=== PATIENT | male | born 1975 | race Caucasian/White ===

== ENCOUNTER 2024-06-27 09:58 | Outpatient (AMB) | payer MEDICARE, MEDICAID, SELFPAY ==
--- NOTE | 2024-06-27 10:07 | A.OFFVIS_ITS ---
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 The patient describes his pain as sharp in nature. The patient states that he underwent right knee ?meniscus tear surgery? approximately 10 years ago. He got fairly good relief from that surgery initially. His pain has returned. He describes his pain as sharp and severe in nature. Most of the pain is along the medial aspect of his knee. He has had cortisone injections in the past which gave him temporary relief. He has also tried Tylenol and Motrin which gave him minimal relief. The patient has difficulty walking even short distances because of his pain. At this point his right knee pain is interfering with his activities of daily living and his ability to sleep well through the night. Allergies No Known Allergies Allergy (Verified 06/27/24 10:15) Medication List - Last Reconciled 06/27/24 by Ottoniel Chavez MD budesonide-formoterol 80-4.5 mcg/actuation inhalation cholecalciferol (vitamin D3) 1,250 mcg PO QWEEK codeine-guaifenesin 10-100 mg/5 mL 10 mL PO TID PRN diclofenac sodium 1% topical BID metoprolol succinate ER 50 mg PO DAILY paroxetine HCl 40 mg PO DAILY prednisone 20 mg PO BID sildenafil 100 mg PO DAILY PRN valsartan 80 mg PO DAILY Physical Exam Vital Signs: BMI result Body Mass Index 35.7 Const Other: Well-nourished well-developed very friendly male awake alert and oriented x3 in no acute distress Extrem Other: Bilateral lower extremity examination shows good capillary refill, no skin lesions noted, normal sensation light touch Right knee examination shows a minimal effusion, palpable crepitus with range of motion, pain with range of motion, range of motion from -3 degrees to 115 degrees, no instability Office Procedures Joint Injection/Aspiration Joint Injection/Aspiration Primary Site: right knee Prep: site was prepped using aseptic technique Injected: 40 mg of, DepoMedrol and 1% plain lidocaine Procedure: The patient tolerated the procedure well Coding 43830 - Large joint Procedure code (CPT) selection complete Results Reviewed Results Reviewed: X-rays of the patient's right knee show moderate to severe joint space narrowing most significant in the medial compartment and patellofemoral joint, subchondral sclerosis, osteophyte formation, no acute bony abnormalities Assessment & Plan Assessment & Plan (1) Arthritis of right knee: Code(s): M17.11 - Unilateral primary osteoarthritis, right knee Category: Medical Plan Mr. Moscoso presents with progressively worsening right knee pain due to degenerative joint disease. I had a lengthy discussion with the patient regarding the treatment options. The risks and benefits of a right knee corti sone injection were discussed at length with the patient. The patient wished to proceed. He tolerated the injection well. He will continue with his activity modifications. He will contact me prior to his follow-up appointment in 3 months should any questions or concerns arise. If he fails continued non operative treatments we will further discuss the risks and benefits of right total knee replacement surgery. Feel free to call me at any time should questions regarding his orthopedic management arise. Thank you very much for asking me to see this very friendly gentleman. I spent 21 minutes in reviewing the patient's records and imaging studies, seeing the patient and documenting in the medical record. Orders: Orders XR knee RT 3V Today M25.561 - Pain in right knee AMB Joint Injection/Aspiration Today M17.11 - Unilateral primary osteoarthritis, right knee Coding Level of Care Code New Pt Level 3 (72609) Complex EM visit Add On G2211 Diagnoses Arthritis of right knee M17.11 CPT Codes Coding - 08557 Large joint: 79743 - Large joint ([id number])
[2024-06-27 10:24] VITALS: BMI 35.7
== END 2024-06-27 10:26 | disposition home or self-care (01) ==
PROVIDERS: PCP Family Medicine; Visit Provider Orthopaedic Surgery
DX: M17.11 Unilateral primary osteoarthritis, right knee (principal)
CPT/HCPCS: 20610; 99203

== ENCOUNTER 2024-06-27 12:59 | Outpatient (REF) | payer MEDICAID, SELFPAY | END 2024-06-27 13:00 | disposition home or self-care (01) | LOC: HO.HOSX 12:59 | PROVIDERS: Visit Provider Orthopaedic Surgery | DX: M25.561 Pain in right knee (principal); M17.11 Unilateral primary osteoarthritis, right knee | CPT/HCPCS: 20610; 73562; 99202; J1010; J2003 ==

== ENCOUNTER 2025-04-24 11:27 | Outpatient (AMB) | payer MEDICARE, MEDICAID, SELFPAY ==
--- NOTE | 2025-04-24 11:31 | A.OFFVIS_ITS ---
Vital Signs 04/24/25 11:36 Height 5 ft 8 in Weight 242 lb BMI 36.8 Intake Visit Reasons: Right knee pain Intake Note: Benson is a 50 year old male who presents with complaints of progressively worsening right knee pain. He describes his pain as sharp and severe in nature, 06/21. His pain has gotten worse over the last few years in spite of continued non operative treatments. He has had multiple injections. The most recent injection gave him minimal relief. He has also tried Tylenol and anti- inflammatory medicines which gave him only mild relief. He has done physical therapy exercises which aggravated his pain. At this point his right knee pain is interfering with his activities of daily living and his ability to sleep well through the night. He has difficulty walking even short distances because of his pain. Allergies No Known Allergies Allergy (Verified 04/24/25 11:32) Medication List - Last Reconciled 04/24/25 by Ottoniel Chavez MD budesonide-formoterol 80-4.5 mcg/actuation inhalation cholecalciferol (vitamin D3) 1,250 mcg PO QWEEK diclofenac sodium 1% topical BID metoprolol succinate ER 50 mg PO DAILY paroxetine HCl 10 mg PO DAILY paroxetine HCl 40 mg PO DAILY prednisone 20 mg PO BID quetiapine 50 mg PO BEDTIME sildenafil 100 mg PO DAILY PRN valsartan 80 mg PO DAILY Physical Exam Vital Signs: BMI result Body Mass Index 36.8 Const Other: Well-nourished well-developed very friendly male awake alert and oriented x3 in no acute distress Extrem Other: Bilateral lower extremity examination shows good capillary refill, no skin lesions noted, normal sensation light touch Right knee examination shows a minimal effusion, palpable crepitus with range of motion, pain with range of motion, range of motion from -3 degrees to 115 degrees, no instability Results Reviewed Results Reviewed: X-rays of the patient's right knee show end-stage degenerative joint disease with grade 4 [id number] arthritis, subchondral sclerosis, osteophyte formation, no acute bony abnormalities Assessment & Plan Assessment & Plan (1) Right knee pain: Code(s): M25.561 - Pain in right knee Category: Medical Plan Mr. Flores presents with right knee pain due to end-stage degenerative joint disease. I had a lengthy discussion with the patient regarding the treatment options. At this point he has failed continued non operative treatments. The risks and benefits of right total knee replacement surgery were discussed at length with the patient. The patient wishes to proceed with surgery. He will be scheduled for next available date. He will follow-up as instructed. Feel free to call me at any time should questions regarding his orthopedic management arise. I spent 21 minutes in reviewing the patient's records and imaging studies, seeing the patient and documenting in the medical record. Coding Level of Care Code Est Pt Level 3 (06894) Complex EM visit Add On G2211 Diagnoses Right knee pain M25.561
[2025-04-24 11:36] VITALS: BMI 36.8
--- OUTSIDE RECORDS SUMMARY | 2025-04-24 12:26 | XMS_ITS | Clinical Summary ---
Author Organization [facility] Address [address] [place] [address] Phone Care Team Providers Care Manager Privacy Name Role Phone Ba Roberts MD Primary Care Provider [phone] Allergies Active Allergy Reactions Criticality Noted Date Comments Penicillins 09/30/2024 Medications amLODIPine (NORVASC) 10 mg tablet Take 1 tablet (10 mg total) by mouth 1 (one) time each day. Active cholecalciferol (VITAMIN D-3) 1,250 mcg (50,000 unit) capsule Take 1 capsule (50,000 Units total) by mouth 1 (one) time per week. Active omeprazole (PriLOSEC) [address] capsule Take 1 capsule (40 mg total) by mouth 1 (one) time each day before breakfast. Active valsartan (DIOVAN) 80 mg tablet Take 1 tablet (80 mg total) by mouth 1 (one) time each day. Active calcium carbonate-vitam in D 500 mg-5 mcg (200 unit) per tablet Take 1 tablet by mouth 1 (one) time each day. Active Active Problems Problem Noted Date Diagnosed Date Renal colic 09/30/2024 Surgical History Surgery Date Site/Laterality Comments KNEE ARTHROSCOPY W/ MENISCAL REPAIR Right PROCEDURE: FL ARTHROSCOPY KNEE W/MENISCUS RPR MEDIAL/LATERAL SLEEVE GASTROPLASTY Medical History Medical History Date Comments GERD (gastroesophageal reflux disease) DX:GERD (gastroesophageal reflux disease) Arthritis DX:Arthritis HTN (hypertension) DX:HTN (hyper tension) Knee swelling DX:Knee swelling Ankle swelling DX:Ankle swellin g Gastric bypass status for obesity Family History Medical History Relation Name Comments Diabetes Father Hypertension Father Arthritis Mother Hypertension Mother Diabetes Other Hypertension Other Relation Name Status Comments Father Mother Alive Other Social History Tobacco Use Types Packs/Day Years Used Date Smoking Tobacco: Former Smokeless Tobacco: Never Alcohol Use Standard Drinks/Week Comments No 0 (1 standard drink = 0.6 oz pur e alcohol) Interpersonal Safety Answer Date Record ed Physical Abuse 09/30/2024 Verbal Abuse 09/30/2024 Sex and Gender Information Value Date Recorded Sex Assigned at Male 09/30/2024 12:08 PM EST Legal Sex Male 8:51 AM EST Gender Identity Male 09/30/2024 12:08 PM EST Sexual Orientation Straight 09/30/2024 12 :08 PM EST Obstetrics History Last Filed Vital Signs Vital Sign Reading Time Taken Comments Blood Pressure 120/76 10/01/2024 7:32 AM EST Pulse 68 10/01/2024 7:32 AM EST Temperature 36.6 C (97.8 F) 10/01/2024 7:32 AM EST Respiratory Rate 15 10/01/2024 7:32 AM EST Oxygen Saturation 99% 10/01/2024 7:32 AM EST Inhaled Oxygen Concentration - - Weight 112 kg (246 lb 14.4 oz) 09/30/2024 5:30 P M EST Height 172.7 cm (5' 7.99 ) 09/30/2024 5:30 PM ES T Body Mass Index 37.55 09/30/2024 5:30 PM EST Plan of Treatment Health Maintenance Due Date Last Done Comments HIV Screening 08/21/2022 Hepatitis C Screening 08/21/2022 Medicare Annual Wellness Visit 08/21/2022 Social Influencers of Health Screening 08/21/2022 Pneumococcal Vaccine: 50+ Years (1 of 1 - PCV) 2023 COVID-19 Vaccine (4 - season) 2024 09/07/2021, 01/26/2021, 12/23/2020 Zoster Vaccines (2 of 2) 07/24/2024 05/29/2024 DTaP,Tdap,and Td Vaccines (2 - Td or Tdap) 09/12/2024 09/12/2014 Depression Screening 09/12/2024 Influenza Vaccine (#1) 2025 , 05/20/2022, 06/18/2021, Additional history exists Colorectal Cancer Screening: FIT-DNA (Cologuard) 06/17/2025 06/17/2022 Hypertension/CHF/CAD Annual BMP Blood Test 10/01/2025 10/01/2024, 09/30/2024, 05/29/2024 Cholesterol Screening (Lipid Panel) 05/29/2029 05/29/2024, 05/29/2024, 06/24/2023, Additional history exists Hepatitis B Vaccines Completed 08/04/2020, 06/30/20 HIB Vaccines Aged Out No longer eligi ble based on patient's age to complete this topic HPV Vaccines Aged Out No longer eligi ble based on patient's age to complete this topic Hepatitis A Vaccines Aged Out No long er eligible based on patient's age to complete this topic IPV Vaccines Aged Out No longer eligi ble based on patient's age to complete this topic MMR Vaccines Aged Out No longer eligi ble based on patient's age to complete this topic Meningococcal ACWY Vaccine Aged Out N o longer eligible based on patient's age to complete this topic Meningococcal B Vaccine Aged Out No l onger eligible based on patient's age to complete this topic RSV Immunization Patients Under 20 months Aged Out No longer eligible based on patient's age to complete this topic Varicella Vaccines Aged Out No longer eligible based on patient's age to complete this topic Procedures Procedure Name Priority Date/Time Associated Diagnosis Comments BASIC METABOLIC PANEL Routine 10/01/2024 5:57 AM EST from Last 3 Months or Most Recently Relevant to Health Maintenance Results * (ABNORMAL) Basic metabolic panel (10/01/2024 5:57 AM EST) Sodium 142 133 - 145 mmol/L LAB CHEMISTRY METHOD 10/01/2024 7:06 AM EST [facility] Potassium 4.0 3.5 - 5.5 mmol/L LAB CHEMISTRY METHOD 10/01/2024 7:06 AM EST [facility] Chloride 109 96 - 110 mmol/L LAB CHEMISTRY METHOD 10/01/2024 7:06 AM EST [facility] CO2 26 21 - 32 mmol/L LAB CHEMISTRY METHOD 10/01/2024 7:06 AM EST [facility] Anion Gap 7 3 - 11 LAB CHEMISTRY METHOD 10/01/2024 7:06 AM [facility] Glucose 90 70 - 100 mg/dL LAB CHEMISTRY METHOD 10/01/2024 7:06 AM [facility] BUN 11 5 - 25 mg/dL LAB CHEMISTRY METHOD 10/01/2024 7:06 AM [facility] Creatinine 0.84 0.70 - 1.30 mg/dL LAB CHEMISTRY METHOD 10/01/2024 7:06 AM [facility] eGFR 106 >=60 mL/min/1. 73m2 LAB CHEMISTRY METHOD 10/01/2024 7:06 AM [facility] Comment:Calculation based on the Chronic Kidney Disease Epidemiology Collaboration (CKD-EPI) equation refit without adjustment for race. BUN/Creatinine Ratio 13.1 LAB CHEMISTRY METHOD 10/01/2024 7:06 AM [facility] Calcium 8.0(L) 8.5 - 10.5 mg/dL LAB CHEMISTRY METHOD 10/01/2024 7:06 AM [facility] Blood Venous blood specimen / Unknown Venipuncture / Unknown 10/01/2024 5:57 AM EST 10/01/2024 6:32 AM EST us Laly Mckenna MD LAB BLOOD ORDERABLES Final Res ult [facility] [address] [place] [address], from Last 3 Months or Most Recently Relevant to Health Maintenance Insurance MEDICARE MEDICAID - [place] Advance Directives * Full Code - Default (Latest Code Status on File) Date Activated Date Inactivated Comments 09/30/2024 3:57 PM 10/01/2024 1:41 PM This is orde r is used when code status has not been discussed with the patient, or code status is otherwise unknown/unconfirmed To update the patient's code status, place a code status order. Do not modify or discontinue any currently active code status orders. Care Teams Manager Privacy Relationship Specialty Start Date End Date Ba Roberts MD [address] [place] [phone] PCP - General Internal Medicine 04/10/19
--- OUTSIDE RECORDS SUMMARY | 2025-04-24 12:26 | XMS_ITS | Clinical Summary ---
Author Organization [facility] Address [address] [place] [address] Care Team Providers Care Fountain Worker Name Role Phone Jose Francis LUBRICATION EQUIPMENT SERVICER Primary Care Provider [phone] Source Comments PLEASE NOTE, if this patient is a minor, it may be UNLAWFUL to discuss sensitive information that is contained in these records (such as FAMILY PLANNING, MENTAL HEALTH or SUBSTANCE ABUSE) with the minor patient's parent or other person without the patient's specific authorization.[facility] Allergies Active Allergy Reactions Criticality Noted Date Comments Lisinopril Cough 06/13/2020 Penicillins Swelling 08/24/2019 Medications miscellaneous medical supply miscIndications:Ch ronic pain of right knee,Localized edema by miscellaneous route as needed (WHEN OUT OF BED) Compression stocking; knee high (20-30 mmHg) R60.0 Localized edema (lower extremities) 2 Each 12/13/19 20 Active arm brace (WRIST BRACE LARGE) Wear carpal tunnel brace at night and during physical activity 2 Each 1 05/15/20 21 Active blood pressure monitorIndications :Essential hypertension Check BP at least once daily x 99 years 1 Kit 08/23/20 22 Active miscellaneous medical supply miscIndications:Di fficulty walking by miscellaneous route daily Shower grab bars x99 years; 5'8 309 lb 2 Each 08/23/20 22 Active inhalational spacing deviceIndications: Postnasal drip UAD 1 Each 1 08/12/20 23 Active caneIndications:Os teoarthritis of right knee, unspecified osteoarthritis type Use daily x99 years 1 Each 05/29/20 24 Active acetaminophen (TYLENOL) 500 mg tabletIndications: Osteoarthritis of right knee, unspecified osteoarthritis type Take 1 Tablet by mouth every 6 (six) hours as needed for pain 90 Tablet 2 05/29/20 24 Active omeprazole (PRILOSEC) [address] capsuleIndications :Gastroesophageal reflux disease without esophagitis TAKE 1 CAPSULE BY MOUTH IN THE MORNING BEFORE BREAKFAST 90 Capsule 3 05/29/20 24 Active QUEtiapine (SEROQUEL) 50 mg tablet Take 1 Tablet by mouth nightly at bedtime 90 Tablet 1 05/29/20 24 Active PARoxetine (PAXIL) 10 mg tabletIndications: Anxiety TAKE 1 TABLET BY MOUTH ONCE DAILY WITH 40mg tablet FOR total DAILY DOSE OF 50MG 90 Tablet 3 10/23/19 25 Active PARoxetine HCl (PAXIL) 40 mg tabletIndications: Anxiety Take with 10mg tab with total daily dose of 50mg 90 Tablet 3 10/23/19 25 Active diclofenac sodium (VOLTAREN) 1 % gelIndications:Ost eoarthritis of right knee, unspecified osteoarthritis type APPLY 2 grams TOPICALLY TO THE AFFECTED AREA two (2) times a day 100 g 2 11/29/19 25 Active budesonide-formote roL (SYMBICORT) 80-4.5 mcg/actuation inhalerIndications :Postnasal drip Use 1puffs every 6 hours prn SOB 10.2 g 2 12/01/19 25 Active cholecalciferol, vitamin D3, (VITAMIN D3) 1,250 mcg (50,000 unit) capsuleIndications :Gastroesophageal reflux disease without esophagitis TAKE ONE CAPSULE BY MOUTH ONCE A WEEK 12 Capsule 3 12/11/19 25 Active sildenafiL (VIAGRA) 100 mg tablet Take 1 Tablet by mouth once daily as needed for erectile dysfunction. 10 Tablet 5 04/02/20 25 Active tamsulosin (FLOMAX) 0.4 mg 24 hr capsuleIndications :Left flank pain,History of nephrolithiasis Take 1 Capsule by mouth once daily. 90 Capsule 3 04/02/20 25 Active amlodipine-valsart an (EXFORGE) 10-160 mg per tablet Take 1 Tablet by mouth once daily. 90 Tablet 1 04/02/20 25 Active gabapentin (NEURONTIN) 300 mg capsuleIndications :Bilateral hand numbness Take 1 Capsule by mouth 2 (two) times daily. 60 Capsule 2 04/02/20 25 Active phentermine 37.5 mg capsuleIndications :Class 2 obesity due to excess calories without serious comorbidity with body mass index (BMI) of 38.0 to 38.9 in adult Take 1 Capsule by mouth every morning. Max Daily Amount: 37.5 mg 30 Capsule 2 04/02/20 25 Active calcium citrate (CALCITRATE) 200 mg (950 mg) tablet Take 1 Tablet by mouth once daily 09/16/19 24 025 Disconti nued(The rapy complete d/Not needed) benzonatate (TESSALON) 100 mg capsuleIndications :Acute cough Take 1 Capsule by mouth 3 (three) times daily as needed for cough 30 Capsule 11/10/19 24 025 Disconti nued(The rapy complete d/Not needed) fluticasone (FLONASE) 50 mcg/actuation nasal sprayIndications:P ostnasal drip Place 1 [place] in both nostrils once daily 16 g 5 11/10/19 24 025 Disconti nued(The rapy complete d/Not needed) sildenafiL (VIAGRA) 100 mg tablet Take 1 Tablet by mouth once daily as needed for erectile dysfunction 30 Tablet 5 05/29/20 24 025 Disconti nued(Reo rder (E-Cance l Not Sent)) tamsulosin (FLOMAX) 0.4 mg 24 hr capsuleIndications :Left flank pain,History of nephrolithiasis Take 1 Capsule by mouth once daily 30 Capsule 12/26/19 25 025 Disconti nued(Reo rder (E-Cance l Not Sent)) gabapentin (NEURONTIN) 300 mg capsuleIndications :Bilateral hand numbness TAKE 1 CAPSULE BY MOUTH two (2) times a day 60 Capsule 2 01/04/20 25 025 Disconti nued(Reo rder (E-Cance l Not Sent)) valsartan (DIOVAN) 80 mg tabletIndications: Essential hypertension TAKE 1 TABLET BY MOUTH ONCE DAILY 90 Tablet 1 02/20/20 25 025 Disconti nued(Exc hange, Therapeu tic) amLODIPine (NORVASC) 10 mg tabletIndications: Essential hypertension Take 1 Tablet by mouth once daily 90 Tablet 1 03/04/20 25 025 Disconti nued(Exc hange, Therapeu tic) Active Problems Problem Noted Date Diagnosed Date Mild intermittent asthma without complication ([facility]) 04/02/2025 History of kidney stones 04/02/2025 Erectile dysfunction 09/16/2023 Class 2 obesity due to exces s calories without serious comorbidity with body mass index (BMI) of 36.0 to 36.9 in adult 09/16/2023 S/P bariatric surgery 11/30/2022 Dermatitis 08/26/2021 Overview (12/23/2021): December 20 2021: continue with lidex and tacrolimus ointment Sep 2021: being followed by [facility] Assessment & Plan (08/26/2021 10:42 AM EST): Right lower leg Schizoaffective disorder, bipolar type ([facility]) 07/07/2021 Posttraumatic stress disorder 07/07/2021 Neuropathy 06/30/2021 Anxiety 06/13/2020 Overview (09/16/2023): Sep 2023- condition controlled, on meds and not seeing counselor Essential hypertension 04/02/2019 Vitamin D deficiency 04/02/2019 Gastroesophageal reflux disease without esophagi tis 04/02/2019 Osteoarthritis of right knee 04/02/2019 Resolved Problems Problem Noted Date Diagnosed Date Resolved Date Bilateral carpal tunnel syndrome 06/30/2021 09/16/2023 COVID-19 07/24/2020 09/16/2023 BMI 45.0-49.9, adult ([facility] [address]) 06/13/2020 09/16/2023 Benign prostatic hyperplasia with urinary frequency 06/13/2020 09/16/2023 Suspected COVID-19 virus infection 01/24/2020 05/15/2021 Overview (01/24/2020): COVID-19 Tracking [reviewed or updated 01/24/2020] Exposure to confirmed case or travel risk - No Date that symptoms began - 2 months ago Patient risk factors for severe COVID-19: Severe obesity (BMI of 40 or higher) and Diabetes Healthcare worker or newspaper illustrator? No COVID-19 Tested? - No Is patient ? No Encounters Date Type Department Care Team Description 04/02/2025 10:40 AM EDT Office Visit [address] [phone] Penny JoseJAMES 03/08/2025 2:00 PM EDT Office Visit [address] [phone] Callie Oviedo DDS 03/04/2025 10:00 AM EDT Office Visit [address] [phone] Callie Oviedo DDS from Last 3 Months Immunizations Immunization Administration Dates Next Due Flu, Cell Culture based, Mul ti Dose, 6m+, Flucelvax 07/27/2018,07/27/2018 Flu, Cell Culture based, Pre servative Free, 6m+, Flucelvax 06/18/2021 Flu, Preservative Free 05/20/2022,09/18/2020 Hep B,adult,adjuvanted (HEPLISAV) 08/04/2020, INFLUENZA, SEASONAL, INJECTABLE 07/07/2017,07/07 Influenza (FLUBLOK),recombinant,injectable,preservati ve Free 05/29/2024 Moderna COVID-19 Vaccine, re d cap blue label, 12+ Primary Series 01/26/2021,12/23/2020 TDAP 10/23/2024,09/12/2014,09/12/2014 ZOSTER VACCINE, RECOMBINANT (SHINGRIX) ,05/29/2024 Family History Medical History Relation Name Comments Diabetes Father Hypertension Father Hypertension Maternal Uncle Depression Mother Hypertension Mother Hypertension Paternal Aunt Relation Name Status Comments Daughter Other at age 21 of CHF, Trisomy 13 Father at age 83, old age , DM compications Maternal Uncle Mother Alive Paternal Aunt Sister Other one sister age age 63, DM complications Social History Tobacco Use Types Packs/Day Years Used Date Smoking Tobacco: Never Smokeless Tobacco: Never Tobacco Cessation:Counseling Given: Not Answered Alcohol Use Standard Drinks/Week Comments Never 0 (1 standard drink = 0.6 oz pur e alcohol) Social Connections Answer Date Recorded How often do you feel lonely or isolated from th ose around you? 1 05/29/2024 Financial Resource Strain Answer Date R ecorded Hard to pay for: Food 1 05/29/2024 Stress Answer Date Recorded Do you feel these kinds of stress these days? 1 05/29/2024 Physical Activity Answer Date Recorded Physical Activity 0 04/30/2019 Food Insecurity Answer Date Recorded Hard to pay for: Food 1 05/29/2024 Transportation Needs Answer Date Record ed Hard to pay for: Transportation 1 05/29/2024 Housing Stability Answer Date Recorded Hard to pay for: Rent/Mortgage payment 1 05/29/2024 Safety and Environment Answer Date Odilon rded Safety 0 11/30/2022 Utilities Answer Date Recorded Hard to pay for: Utilities 1 05/29 Employment Answer Date Recorded Stress 0 11/30/2022 Sex and Gender Information Value Date Recorded Sex Assigned at Male 04/02/2019 10:17 AM PDT Legal Sex Male 10:03 AM PDT Gender Identity Male 04/02/2019 10:17 AM PDT Sexual Orientation Straight 04/02/2019 10 :41 AM PDT Occupation Industry Job Start Date Job End Date disabiliy Not on file Not on file Not on file Last Filed Vital Signs Vital Sign Reading Time Taken Comments Blood Pressure 140/90 04/02/2025 10:48 AM EDT Pulse 81 04/02/2025 10:48 AM EDT Temperature 37.1 C (98.7 F) 04/02/2025 10:48 AM EDT Respiratory Rate 16 04/02/2025 10:4 8 AM EDT Oxygen Saturation 98% 04/02/2025 10: 48 AM EDT Inhaled Oxygen Concentration - - Weight 115.3 kg (254 lb 3.2 oz) 025 10:48 AM EDT Height 172.7 cm (5' 8 ) 04/02/2025 10:4 8 AM EDT Body Mass Index 38.65 04/02/2025 10:48 AM EDT Plan of Treatment Health Maintenance Due Date Last Done Comments Dental FMX/Pano 1973 Dental Prophy 1973 Medicare Annual Wellness Visit 1991 Imm-Pneumococcal 50+ (1 of 2 - PCV) 02/21/1992 CT Colonography 2018 Colonoscopy 2018 Flexible Sigmoidoscopy 2018 FIT/gFOBT 06/17/2023 06/17/2022 [id number] ( season) 2024 09/07/2021, 01/26/2021, 12/23/2020 Alcohol and Drug Screen 09/12/2024 05/29/20 24, 09/16/2023, 11/30/2022, Additional history exists Depression Annual Screen 09/12/2024 024, 06/13/2020 (Managed by Outside Provider) Imm-Influenza (#1) 2025 05/29/2024, 0 05/20/2022, 06/18/2021, Additional history exists Anxiety Screening 05/29/2025 05/29/2024 Lipid Screening 05/29/2025 05/29/2024, 06/12, 05/20/2022, Additional history exists Colorectal Cancer Screening 06/17/2025 Fecal DNA 06/17/2025 06/17/2022 Dental Examination 08/17/2025 08/15/2024 Dental Perio Charting 08/17/2025 08/15/2024 Diabetes Screening 12/25/2025 12/25/2024, 0 10/01/2024, 09/30/2024, Additional history exists Annual Wellness (Adult): Indicated (All Coverage) 04/02/2026 04/02/2025, 09/16/2023, 05/20/2022, Additional history exists Tobacco Screening 04/03/2026 04/03/2025 Imm-DTaP/Tdap/Td (4 - Td or Tdap) 10/23/2034 10/23/2024, 09/12/2014, 09/12/2014 Imm-Hepatitis B Discontinued 08/04/2020, 06/30/2020 Imm-Zoster, Recombinant Completed 10/23/2024, 05/29 HIV Screening Completed 12/25/2024, 10/13, 10/29/2023, Additional history exists Hepatitis C Screening Completed 12/25/2024 , 10/23/2024, 06/24/2020 Procedures Procedure Name Priority Date/Time Associated Diagnosis Comments 31,30,29,28,27,21,19 ,18 MANDIBULAR PARTIAL DENTURE - RESIN BASE Routine 03/08/2025 2:00 PM EDT Encounter for dental examination 2,5,12,13,14,15 MAXILLARY PARTIAL DENTURE - RESIN BASE Routine 03/08/2025 2:00 PM EDT Encounter for dental examination TRY IN Routine 03/04/2025 10:00 AM EDT Encounter for dental examination HIV 1/2 AG & AB W/RFLX (4TH GEN) Routine 12/25/2024 3:19 PM EDT Screening for STDs (sexually transmitted diseases) HEPATITIS C AB W/RFLX HCV RNA, QT, RT PCR Routine 12/25/2024 3:19 PM EDT Screening for STDs (sexually transmitted diseases) BASIC METABOLIC PANEL CALCIUM TOTAL Routine 12/25/2024 3:19 PM EDT Left flank pain PERIODIC ORAL EVALUATION ESTABLISHED PATIENT Routine 08/15/2024 10:00 AM EST Caries LIPID PANEL Routine 05/29/2024 11:33 AM EDT Essential hypertension COLOGUARD Routine 06/17/2022 3:00 AM EDT Examination, medical, general Encounter for screening for malignant neoplasm of colon from Last 3 Months or Most Recently Relevant to Health Maintenance Results * HEPATITIS C AB W/RFLX HCV RNA, QT, RT PCR (12/25/2024 3:19 PM EDT) Pathologist [facility] HEPATITIS C ANTIBODY NON-REACT CARMEN NON-REACT CARMEN [facility] Comment: HCV antibody was non-reactive. There is no laboratory evidence of HCV infection. In most cases, no further action is required. However, if recent HCV exposure is suspected, a test for HCV RNA (test code 95776) is suggested. For additional information please refer to http://education.zanda.Airseed/faq/FQQ28c9 (This link is being provided for informational/ educational purposes only.) Blood Blood / Unknown 12/25/2024 3 :19 PM EDT 12/25/2024 3:20 PM EDT us Jemma Sewell MD LAB - BLOOD DRAW Edited Result - Final [facility] [address] [address], [facility] [address] [address] * HIV 1/2 AG & AB W/RFLX (4TH GEN) (12/25/2024 3:19 PM EDT) HIV AG/AB, 4TH GEN NON-REAC TIVE NON-REAC TIVE [facility] Comment: HIV-1 antigen and HIV-1/HIV-2 antibodies were not detected. There is no laboratory evidence of HIV infection. PLEASE NOTE: This information has been disclosed to you from records whose confidentiality may be protected by state law. If your state requires such protection, then the state law prohibits you from making any further disclosure of the information without the specific written consent of the person to whom it pertains, or as otherwise permitted by law. A general authorization for the release of medical or other information is NOT sufficient for this purpose. For additional information please refer to http://education.[employer]/faq/PEC746 (This link is being provided for informational/ educational purposes only.) The performance of this assay has not been clinically validated in patients less than 2 years old. Blood Blood / Unknown 12/25/2024 3 :19 PM EDT 12/25/2024 3:20 PM EDT us Jemma Sewell MD LAB - BLOOD DRAW Final Result [facility] [address] [address], [facility] [address] [address] * BASIC METABOLIC PANEL CALCIUM TOTAL (12/25/2024 3:19 PM EDT) GLUCOSE 94 65 - 99 mg/dL [facility] Comment: Fasting reference interval UREA NITROGEN (BUN) 12 7 - 25 mg/dL [facility] CREATININE (blood) 0.90 0.70 - 1.30 mg/dL [facility] EGFR 103 > OR = 60 mL/min/1. 73m2 [facility] BUN/CREATININE RATIO SEE NOTE: [facility] [employer] Comment: Not Reported: BUN and Creatinine are within reference range. SODIUM 139 135 - 146 mmol/L [facility] POTASSIUM 4.4 3.5 - 5.3 mmol/L [facility] CHLORIDE 102 98 - 110 mmol/L [facility] CARBON DIOXIDE 28 20 - 32 mmol/L [facility] CALCIUM 9.6 8.6 - 10.3 mg/dL [facility] Blood Blood / Unknown 12/25/2024 3 :19 PM EDT 12/25/2024 3:20 PM EDT Jemma Sewell MD LAB - BLOOD DRAW Edited Result - Final [facility] [address] [address], [facility] [address] [place] [address] * LIPID PANEL (05/29/2024 11:33 AM EDT) CHOLESTEROL, TOTAL 159 <200 mg/dL [facility] HDL CHOLESTEROL 58 > OR = 40 mg/dL [facility] TRIGLYCERIDES 103 <150 mg/dL [facility] LDL-CHOLESTEROL 81 99 mg/dL (calc) [facility] Comment: Reference range: <100 Desirable range <100 mg/dL for primary prevention; <70 mg/dL for patients with CHD or diabetic patients with > or = 2 CHD risk factors. LDL-C is now calculated using the Alexandr calculation, which is a validated novel method providing better accuracy than the Friedewald equation in the estimation of LDL-C. Santosh SS et al. DMITRY. 2013;310(19): 5827-8679 (http://education.TIKI.VN/faq/ZKI054) CHOL/HDLC RATIO 2.7 <5.0 (calc) [facility] NON-HDL CHOLESTEROL 101 <130 mg/dL (calc) [facility] Comment: For patients with diabetes plus 1 major ASCVD risk factor, treating to a non-HDL-C goal of <100 mg/dL (LDL-C of <70 mg/dL) is considered a therapeutic option. Blood Blood / Unknown 05/29/2024 1 1:33 AM EDT 05/29/2024 11:34 AM EDT Narrative [facility] - 06/01/2024 8:42 AM EDT FASTING:NO Jose Penny LUBRICATION EQUIPMENT SERVICER LAB - BLOOD DRAW Final Re sult [facility] [address] [address], [facility] [address] [address] * COLOGUARD (06/17/2022 3:00 AM EDT) Stool Stool specimen / Unknown 06/17/2022 3:00 AM EDT GET IT [employer] LUBRICATION EQUIPMENT SERVICER LAB BODY FLUIDS AND STOOL S AMBULATORY Edited Result - Final from Last 3 Months or Most Recently Relevant to Health Maintenance [place] [facility] Care Teams Fountain Worker Relationship Specialty Start Date End Date Jose Francis FNP [address] [place] [address] PCP - General 06/12/20
== END 2025-04-24 12:04 | disposition home or self-care (01) ==
LOC: HO.HOS 11:27
PROVIDERS: PCP Family Medicine; Visit Provider Orthopaedic Surgery
DX: M25.561 Pain in right knee (principal)
CPT/HCPCS: 99214; G2211

== ENCOUNTER → 2025-04-24 11:27 | Outpatient (BNVA) | payer MEDICARE, MEDICAID, SELFPAY | PROVIDERS: PCP Family Medicine; Visit Provider Orthopaedic Surgery | DX: M25.561 Pain in right knee (principal) | CPT/HCPCS: 99212 ==

== ENCOUNTER → 2025-06-07 12:13 | Outpatient (BNV) | payer MEDICARE, MEDICAID, SELFPAY | PROVIDERS: PCP Nurse Practitioner Family; Visit Provider Internal Medicine Cardiovascular Disease | DX: I10 Essential (primary) hypertension (principal) | CPT/HCPCS: 93010 ==

== ENCOUNTER → 2025-06-10 11:05 | Outpatient (BNVA) | payer MEDICARE, MEDICAID, SELFPAY | PROVIDERS: PCP Nurse Practitioner Family | DX: Z01.818 Encounter for other preprocedural examination (principal) ==

== ENCOUNTER 2025-07-04 12:51 | Outpatient (AMB) | payer MEDICARE, MEDICAID, SELFPAY ==
--- NOTE | 2025-07-04 12:56 | MHC.OFFVIS ---
Intake Visit Reasons: Right knee pain Intake Note: Benson is a 50 year old male who presents with complaints of progressively worsening right knee pain. He describes his pain as sharp and severe in nature, 06/21. His pain has gotten worse over the last few years in spite of continued non operative treatments. He has had multiple injections. The most recent injection gave him minimal relief. He has also tried Tylenol and anti-inflammatory medicines which gave him only mild relief. He has done physical therapy exercises which aggravated his pain. At this point his right knee pain is interfering with his activities of daily living and his ability to sleep well through the night. He has difficulty walking even short distances because of his pain. Allergies No Known Allergies Allergy (Verified 06/10/25 11:12) Medication List - Last Reconciled 07/04/25 by Ottoniel Chavez MD amlodipine-valsartan 10-160 mg 1 tab PO DAILY budesonide-formoterol 80-4.5 mcg/actuation 2 puffs inhalation Q4-6H PRN cholecalciferol (vitamin D3) 1,250 mcg PO QWEEK diclofenac sodium 1% topical BID PRN ibuprofen 200 mg PO Q6H PRN metoprolol succinate ER 50 mg PO DAILY paroxetine HCl 10 mg PO DAILY paroxetine HCl 40 mg PO DAILY quetiapine 50 mg PO BEDTIME walker Folding front wheeled walker [facility] Medical History Erectile dysfunction Schizoaffective disorder HTN (hypertension) Arthritis Hx of renal calculi (~2023) PTSD (post-traumatic stress disorder) Depression Anxiety Right knee pain Seasonal asthma Surgical History History of esophagogastroduodenoscopy (EGD) Hx of bariatric surgery (12/2022) Social History Household Members: None Housing: Apartment Are you a primary medication care manager to a significant other at home: No Do you presently have visiting nurse or other home services: No 75 years or older and lives alone: No Patient Tobacco Use Status: Former Tobacco user Tobacco use type: Cigarette Physical Exam Const Other: Well-nourished well-developed very friendly male awake alert and oriented x3 in no acute distress Extrem Other: Right knee examination shows a minimal effusion, palpable crepitus with range of motion, pain with range of motion, range of motion from -3 degrees to 115 degrees, no instability Results Reviewed Results Reviewed: X-rays of the patient's right knee show end-stage degenerative joint disease with grade 4 [id number] arthritis, subchondral sclerosis, osteophyte formation, no acute bony abnormalities Assessment & Plan Assessment & Plan (1) Right knee pain: Code(s): M25.561 - Pain in right knee Category: Medical (2) Arthritis of right knee: Code(s): M17.11 - Unilateral primary osteoarthritis, right knee Category: Medical Plan Mr. Flores presents with right knee pain due to end-stage degenerative joint disease. I had a lengthy discussion with the patient regarding the treatment options. At this point he has failed continued non operative treatments. The risks and benefits of right total knee replacement surgery were discussed at length with the patient. The patient wishes to proceed with surgery. medical staff services coordinator will be consulted following his surgery for home physical therapy and nursing. The patient will follow-up as instructed. Feel free to call me at any time should questions regarding his orthopedic management arise. I spent 22 minutes in reviewing the patient's records and imaging studies, seeing the patient and documenting in the medical record. Coding Level of Care Code Est Pt Level 3 (36783) Complex EM visit Add On G2211 Diagnoses Right knee pain M25.561 Arthritis of right knee M17.11
--- OUTSIDE RECORDS SUMMARY | 2025-07-04 16:01 | XMS_ITS | Clinical Summary ---
Author Organization [facility] Address [address] [place] [address] Phone Care Team Providers Care Hat Body Inspector Name Role Phone Ba Roberts MD Primary Care Provider [phone] Allergies Active Allergy Reactions Criticality Noted Date [...] KNEE ARTHROSCOPY W/ MENISCAL REPAIR Right PROCEDURE: [place] ARTHROSCOPY KNEE W/MENISCUS RPR MEDIAL/LATERAL SLEEVE GASTROPLASTY [...] Safety Answer Date Record ed Physical Abuse Unrecognized value 09/30/2024 Verbal Abuse Unrecognized value 09/30/2024 Sex and Gender Information Value Date [...] Health Maintenance Due Date Last Done Comments Pneumococcal Vaccine: 50+ Years (1 of 2 - PCV) 02/21/1992 HIV Screening 08/21/2022 Medicare Annual Wellness Visit 08/21/2022 Social Influencers of Health Screening 08/21/2022 RSV Immunization Adult Patients (1 - Risk 50-74 years 1-dose series) 2023 Depression Screening 09/12/2024 COVID-19 Vaccine (2024- season) 2025 09/07/2021, 01/26/2021, 12/23/2020 Influenza Vaccine (#1) 2025 4, 05/20/2022, 06/18/2021, Additional history exists Colorectal Cancer Screening: FIT-DNA (Cologuard) 06/17/2025 06/17/2022 Hypertension/CHF/CAD Annual BMP Blood Test 12/25/2025 12/25/2024, 10/01/2024, 09/30/2024, Additional history exists Cholesterol Screening (Lipid Panel) 05/29/2029 05/29/2024, 05/29/2024, 06/24/2023, Additional history exists DTaP,Tdap,and Td Vaccines (3 - Td or Tdap) 10/23/2034 10/23/2024, 09/12/2014 Hepatitis B Vaccines Completed 08/04/2020, 06/30/20 20 Zoster Vaccines Completed 10/23/2024, 05/29/2024 Hepatitis C Screening Completed 12/25/2024 HIB Vaccines Aged Out No longer eligi [...] LAB CHEMISTRY METHOD 10/01/2024 7:06 AM EST [facility] Potassium 4.0 3.5 - 5.5 mmol/L LAB CHEMISTRY METHOD 10/01/2024 7:06 AM EST [facility] Chloride 109 96 - 110 mmol/L LAB CHEMISTRY METHOD 10/01/2024 7:06 AM [facility] CO2 26 21 - 32 mmol/L LAB CHEMISTRY METHOD 10/01/2024 7:06 AM [facility] Anion Gap 7 3 - [...] MD LAB BLOOD ORDERABLES Final Res ult [facility] [address] [place] [address], from Last 3 Months or Most Recently Relevant to Health Maintenance Insurance MEDICARE MEDICAID - [place] Advance Directives * Full Code - Default [...] currently active code status orders. Care Teams Hat Body Inspector Relationship Specialty Start Date End Date Ba Roberts MD [address] [place] [address] PCP - General Internal Medicine 04/10/19
--- OUTSIDE RECORDS SUMMARY | 2025-07-04 16:01 | XMS_ITS | Clinical Summary ---
Author Organization [facility] Address [address] [place] [address] Care Team Providers Care It Program Engagement Director Name Role Phone Jose Francis SHAREPOINT APPLICATION ARCHITECT Primary Care Provider [phone] Source Comments PLEASE NOTE, if this patient [...] Penicillins Swelling 08/24/2019 Medications miscellaneous medical supply miscIndications:Chr onic pain of right knee,Localized edema by miscellaneous route as needed (WHEN OUT OF BED) Compression stocking; knee high (20-30 mmHg) R60.0 Localized edema (lower extremities) 2 Each 12/13/19 20 Active arm brace (WRIST BRACE LARGE) Wear carpal tunnel brace at night and during physical activity 2 Each 1 05/15/20 21 Active blood pressure monitorIndications: Essential hypertension Check BP at least once daily x 99 years 1 Kit 08/23/20 22 Active miscellaneous medical supply miscIndications:Dif ficulty walking by miscellaneous route daily Shower grab bars x99 years; 5'8 309 lb 2 Each 08/23/20 22 Active inhalational spacing deviceIndications:P ostnasal drip UAD 1 Each 1 08/12/20 23 Active caneIndications:Ost eoarthritis of right knee, unspecified osteoarthritis type Use daily x99 years 1 Each 05/29/20 24 Active PARoxetine (PAXIL) 10 mg tabletIndications:A nxiety TAKE 1 TABLET BY MOUTH ONCE DAILY WITH 40mg tablet FOR total DAILY DOSE OF 50MG 90 Tablet 3 10/23/19 25 Active PARoxetine HCl (PAXIL) 40 mg tabletIndications:A nxiety Take with 10mg tab with total daily dose of 50mg 90 Tablet 3 10/23/19 25 Active budesonide-formoter oL (SYMBICORT) 80-4.5 mcg/actuation inhalerIndications: Postnasal drip Use 1puffs every 6 hours prn SOB 10.2 g 2 12/01/19 25 Active cholecalciferol, vitamin D3, (VITAMIN D3) 1,250 mcg (50,000 unit) capsuleIndications: Gastroesophageal reflux disease without esophagitis TAKE ONE CAPSULE BY MOUTH ONCE A WEEK 12 Capsule 3 12/11/19 25 Active sildenafiL (VIAGRA) 100 mg tablet Take 1 Tablet by mouth once daily as needed for erectile dysfunction. 10 Tablet 5 04/02/20 25 Active tamsulosin (FLOMAX) 0.4 mg 24 hr capsuleIndications: Left flank pain,History of nephrolithiasis Take 1 Capsule by mouth once daily. 90 Capsule 3 04/02/20 25 Active amlodipine-valsarta n (EXFORGE) 10-160 mg per tablet Take 1 Tablet by mouth once daily. 90 Tablet 1 04/02/20 25 Active gabapentin (NEURONTIN) 300 mg capsuleIndications: Bilateral hand numbness Take 1 Capsule by mouth 2 (two) times daily. 60 Capsule 2 04/02/20 25 Active phentermine 37.5 mg capsuleIndications: Class 2 obesity due to excess calories without serious comorbidity with body mass index (BMI) of 38.0 to 38.9 in adult Take 1 Capsule by mouth every morning. Max Daily Amount: 37.5 mg 30 Capsule 2 04/02/20 25 Active acetaminophen (TYLENOL) 500 mg tabletIndications:O steoarthritis of right knee, unspecified osteoarthritis type TAKE 1 TABLET BY MOUTH EVERY 6 HOURS NEEDED FOR PAIN 90 Tablet 2 05/22/20 25 Active diclofenac sodium (VOLTAREN) 1 % gelIndications:Oste oarthritis of right knee, unspecified osteoarthritis type APPLY 2 grams TOPICALLY TO THE AFFECTED AREA two (2) times a day 100 g 2 05/24/20 25 Active omeprazole (PRILOSEC) [address] capsuleIndications: Gastroesophageal reflux disease without esophagitis TAKE 1 CAPSULE BY MOUTH IN THE MORNING BEFORE BREAKFAST 30 Capsule 11 06/03/20 25 Active QUEtiapine (SEROQUEL) 50 mg tablet TAKE 1 TABLET BY MOUTH EVERY NIGHT AT BEDTIME 30 Tablet 06/03/20 25 Active predniSONE (DELTASONE) 20 mg tabletIndications:M ild intermittent asthma without complication Take 2 Tablets by mouth once daily. 10 Tablet 06/28/20 25 Active Active Problems Problem Noted Date Diagnosed Date Mild intermittent asthma without complication History of kidney stones 04/02/2025 Erectile dysfunction [...] Right lower leg Schizoaffective disorder, bipolar type Posttraumatic stress disorder 07/07/2021 Neuropathy 06/30/2021 Anxiety 06/13/2020 Overview (09/16/2023): Sep 2023- condition controlled, on meds and not seeing counselor Essential hypertension 04/02/2019 Vitamin D deficiency 04/02/2019 Gastroesophageal reflux disease without esophagi tis 04/02/2019 Osteoarthritis of right knee 04/02/2019 Resolved Problems Problem Noted Date Diagnosed Date Resolved Date Bilateral carpal tunnel syndrome 06/30/2021 09/16/2023 COVID-19 07/24/2020 09/16/2023 BMI 45.0-49.9, adult 06/13/2020 024 Benign prostatic hyperplasia with urinary frequency 06/13/2020 09/16/2023 Suspected COVID-19 virus infection 01/24/2020 05/15/2021 Overview (01/24/2020): COVID-19 Tracking [reviewed or updated 01/24/2020] Exposure to confirmed case or travel risk - No Date that symptoms began - 2 months ago Patient risk factors for severe COVID-19: Severe obesity (BMI of 40 or higher) and Diabetes Healthcare worker or oracle database administrator? No COVID-19 Tested? - No Is patient ? No Encounters Date Type Department Care Team Description 06/28/2025 11:20 AM EDT Office Visit [facility] [id number] [place] [address] Jose Francis FNP from Last 3 Months Immunizations Immunization Administration Dates Next Due Flu, Cell Culture based, Mul ti Dose, 6m+, Flucelvax 07/27/2018,07/27/2018 Flu, Cell Culture based, Pre servative Free, 6m+, Flucelvax 06/18/2021 Flu, Preservative Free 05/20/2022,09/18/2020 Hep B,adult,adjuvanted (HEPLISAV) 08/04/2020, INFLUENZA, SEASONAL, INJECTABLE 07/07/2017,07/07 Influenza (FLUBLOK),recombinant,injectable,preservati ve Free 06/28/2025,05/29/2024 Moderna COVID-19 Vaccine, re d cap blue [...] Sign Reading Time Taken Comments Blood Pressure 152/92 06/28/2025 11:51 AM EDT Pulse 68 06/28/2025 11:51 AM EDT Temperature 36.7 C (98.1 F) 06/28/2025 11:51 AM EDT Respiratory Rate 17 06/28/2025 11:5 1 AM EDT Oxygen Saturation 98% 04/02/2025 10: 48 AM EDT Inhaled Oxygen Concentration - - Weight 116.8 kg (257 lb 6.4 oz) 025 11:51 AM EDT Height 172.7 cm (5' 8 ) 06/28/2025 11:5 1 AM EDT Body Mass Index 39.14 06/28/2025 11:51 AM EDT Plan of Treatment Health Maintenance [...] 09/12/2024 024, 06/13/2020 (Managed by Outside Provider) [id number] ( season) 2025 09/07/2021, 01/26/2021, 12/23/2020 Anxiety Screening 05/29/2025 05/29/2024 Lipid Screening 05/29/2025 05/29/2024, 06/12, 05/20/2022, Additional history exists Colorectal Cancer Screening 06/17/2025 Fecal DNA 06/17/2025 06/17/2022 Dental Examination 08/17/2025 08/15/2024 Dental Perio Charting 08/17/2025 08/15/2024 Diabetes Screening 12/25/2025 12/25/2024, 0 10/01/2024, 09/30/2024, Additional history exists Tobacco Screening 06/28/2026 06/28/2025 Imm-DTaP/Tdap/Td (4 - Td or Tdap) 10/23/2034 10/23/2024, 09/12/2014, 09/12/2014 Imm-Hepatitis B Discontinued 08/04/2020, 06/30/2020 Imm-Zoster, Recombinant Completed 10/23/2024, 05/29 HIV Screening Completed 12/25/2024, 10/13, 10/29/2023, Additional history exists Hepatitis C Screening Completed 12/25/2024 , 10/23/2024, 06/24/2020 Imm-Influenza Completed 06/28/2025, 05/13, 05/20/2022, Additional history exists Procedures Procedure Name Priority Date/Time Associated Diagnosis Comments HIV 1/2 AG & AB W/RFLX (4TH [...] HEPATITIS C ANTIBODY NON-REACT CARMEN NON-REACT CARMEN [employer] [facility] Comment: HCV antibody was non-reactive. There is no laboratory evidence of HCV infection. In most cases, no further action is required. However, if recent HCV exposure is suspected, a test for HCV RNA (test code 79265) is suggested. For additional information please refer to http://education.Cotopaxi/faq/QBH25p7 (This link is being provided for informational/ educational purposes only.) Blood Blood / Unknown 12/25/2024 3 :19 PM EDT 12/25/2024 3:20 PM EDT Jemma Sewell MD LAB - BLOOD DRAW Edited Result - Final [facility] [address] [address], [place] [address] [address] * HIV 1/2 AG & AB W/RFLX (4TH GEN) (12/25/2024 3:19 PM EDT) Pathologist [facility] HIV AG/AB, 4TH GEN NON-REAC TIVE NON-REAC TIVE [employer] [facility] Comment: HIV-1 antigen and HIV-1/HIV-2 antibodies [...] purpose. For additional information please refer to http://education.Cotopaxi/faq/HQN908 (This link is being provided for informational/ educational purposes only.) The performance of this assay has not been clinically validated in patients less than 2 years old. Blood Blood / Unknown 12/25/2024 3 :19 PM EDT 12/25/2024 3:20 PM EDT Jemma Sewell MD LAB - BLOOD DRAW Final Result [facility] [address] [address], [facility] [address] [place] [phone] * BASIC METABOLIC PANEL CALCIUM TOTAL (12/25/2024 3:19 PM EDT) GLUCOSE 94 65 - 99 mg/dL [employer] Comment: Fasting reference interval UREA NITROGEN (BUN) 12 7 - 25 mg/dL [employer] CREATININE (blood) 0.90 0.70 - 1.30 mg/dL [facility] EGFR 103 > OR = 60 mL/min/1. 73m2 [facility] BUN/CREATININE RATIO SEE NOTE: [employer] Comment: Not Reported: BUN and Creatinine are within reference range. SODIUM 139 135 - 146 mmol/L [facility] POTASSIUM 4.4 3.5 - 5.3 mmol/L [employer] CHLORIDE 102 98 - 110 mmol/L [facility] CARBON DIOXIDE 28 20 - 32 mmol/L [employer] CALCIUM 9.6 8.6 - 10.3 mg/dL [employer] Blood Blood / Unknown 12/25/2024 3 :19 PM EDT 12/25/2024 3:20 PM EDT us Jemma Sewell MD LAB - BLOOD DRAW Edited Result - Final Performing Organization Address [facility]/ZIP Co de Phone Number [place] [facility] [address] [address], [place] [address] [address] * LIPID PANEL (05/29/2024 11:33 AM EDT) [facility] Signature CHOLESTEROL, TOTAL 159 <200 mg/dL [place] [facility] HDL CHOLESTEROL 58 > OR = 40 mg/dL [place] [facility] TRIGLYCERIDES 103 <150 mg/dL [place] [facility] LDL-CHOLESTEROL 81 99 mg/dL (calc) [place] [facility] Comment: Reference range: <100 Desirable range <100 mg/dL for primary prevention; <70 mg/dL for patients with CHD or diabetic patients with > or = 2 CHD risk factors. LDL-C is now calculated using the Alexandr calculation, which is a validated novel method providing better accuracy than the Friedewald equation in the estimation of LDL-C. Santosh LANG et al. DMITRY. 2013;310(19): 3194-8893 (http://education.GranData/faq/YZN770) CHOL/HDLC RATIO 2.7 <5.0 (calc) [place] [facility] NON-HDL CHOLESTEROL 101 <130 mg/dL (calc) [place] [facility] Comment: For patients with diabetes plus 1 major ASCVD risk factor, treating to a non-HDL-C goal of <100 mg/dL (LDL-C of <70 mg/dL) is considered a therapeutic option. Blood Blood / Unknown 05/29/2024 1 1:33 AM EDT 05/29/2024 11:34 AM EDT Narrative [place] [facility] - 06/01/2024 8:42 AM EDT FASTING:NO Jose MERCADOP LAB - BLOOD DRAW Final Re sult Performing Organization Address [facility]/ZIP Co de Phone Number [place] [facility] [address] [address], [place] [facility] [address] [place] [phone] * COLOGUARD (06/17/2022 3:00 AM EDT) Stool Stool specimen / Unknown 06/17/2022 3:00 AM EDT Jose Penny SHAREPOINT APPLICATION ARCHITECT LAB BODY FLUIDS AND STOOL S AMBULATORY Edited Result - Final from Last 3 Months or Most Recently Relevant to Health Maintenance [place] HE[place] SAF[place]Y NET DENTAL Care Teams It Program Engagement Director Relationship Specialty Start Date End Date Jose Francis FNP [address] [place] [id number] PCP - General 06/12/20
== END 2025-07-04 13:08 | disposition home or self-care (01) ==
LOC: HO.HOS 12:51
PROVIDERS: PCP Nurse Practitioner Family; Visit Provider Orthopaedic Surgery
DX: M25.561 Pain in right knee (principal); M17.11 Unilateral primary osteoarthritis, right knee
CPT/HCPCS: 99214; G2211

== ENCOUNTER → 2025-07-04 12:51 | Outpatient (BNVA) | payer MEDICARE, MEDICAID, SELFPAY | PROVIDERS: PCP Nurse Practitioner Family; Visit Provider Orthopaedic Surgery | DX: M25.561 Pain in right knee (principal); M17.11 Unilateral primary osteoarthritis, right knee | CPT/HCPCS: 99212 ==

== ENCOUNTER 2025-07-08 06:05 | Day surgery (SDC) | payer MEDICARE, MEDICAID, SELFPAY ==
--- NOTE | 2025-06-07 | ECG_ITS ---
Test Reason : preop Blood Pressure : */* mmHG Vent. Rate : 60 BPM Atrial Rate : 60 BPM P-R Int : 140 ms QRS Dur : 90 ms QT Int : 384 ms P-R-T Axes : 50 27 29 degrees QTcB Int : 384 ms Normal sinus rhythm Normal ECG No previous ECGs available Referred By: Milagros Han Electronically Signed By: Charles Mdconough
[2025-06-07 11:15] VITALS: BP 121/75; PULSE 73; RESP 16; O2SAT 97; BMI 38.0
--- OUTSIDE RECORDS SUMMARY | 2025-06-07 12:50 | XMS_ITS | Clinical Summary ---
Author Organization [facility] Address [address] [place] [address] Care Team Providers Care Ham Rolling Machine Operator Name Role Phone Jose Francis RN PALLIATIVE CARE Primary Care Provider [phone] Source Comments PLEASE NOTE, if this patient [...] R60.0 Localized edema (lower extremities) 2 Each 020 Active arm brace (WRIST BRACE LARGE) Wear carpal tunnel brace at night and during physical activity 2 Each 1 021 Active blood pressure monitorIndications :Essential hypertension Check BP at least once daily x 99 years 1 Kit 022 Active miscellaneous medical supply miscIndications:Di fficulty walking by miscellaneous route daily Shower grab bars x99 years; 5'8 309 lb 2 Each 022 Active inhalational spacing deviceIndications: Postnasal drip UAD 1 Each 1 023 Active caneIndications:Os teoarthritis of right knee, unspecified osteoarthritis type Use daily x99 years 1 Each 024 Active PARoxetine (PAXIL) 10 mg tabletIndications: Anxiety TAKE 1 TABLET BY MOUTH ONCE DAILY WITH 40mg tablet FOR total DAILY DOSE OF 50MG 90 Tablet 3 025 Active PARoxetine HCl (PAXIL) 40 mg tabletIndications: Anxiety Take with 10mg tab with total daily dose of 50mg 90 Tablet 3 025 Active budesonide-formote roL (SYMBICORT) 80-4.5 mcg/actuation inhalerIndications :Postnasal drip Use 1puffs every 6 hours prn SOB 10.2 g 2 025 Active cholecalciferol, vitamin D3, (VITAMIN D3) 1,250 mcg (50,000 unit) capsuleIndications :Gastroesophageal reflux disease without esophagitis TAKE ONE CAPSULE BY MOUTH ONCE A WEEK 12 Capsule 3 025 Active sildenafiL (VIAGRA) 100 mg tablet Take 1 Tablet by mouth once daily as needed for erectile dysfunction. 10 Tablet 5 025 Active tamsulosin (FLOMAX) 0.4 mg 24 hr capsuleIndications :Left flank pain,History of nephrolithiasis Take 1 Capsule by mouth once daily. 90 Capsule 3 025 Active amlodipine-valsart an (EXFORGE) 10-160 mg per tablet Take 1 Tablet by mouth once daily. 90 Tablet 1 025 Active gabapentin (NEURONTIN) 300 mg capsuleIndications :Bilateral hand numbness Take 1 Capsule by mouth 2 (two) times daily. 60 Capsule 2 025 Active phentermine 37.5 mg capsuleIndications :Class 2 obesity due to excess calories without serious comorbidity with body mass index (BMI) of 38.0 to 38.9 in adult Take 1 Capsule by mouth every morning. Max Daily Amount: 37.5 mg 30 Capsule 2 025 Active acetaminophen (TYLENOL) 500 mg tabletIndications: Osteoarthritis of right knee, unspecified osteoarthritis type TAKE 1 TABLET BY MOUTH EVERY 6 HOURS NEEDED FOR PAIN 90 Tablet 2 025 Active diclofenac sodium (VOLTAREN) 1 % gelIndications:Ost eoarthritis of right knee, unspecified osteoarthritis type APPLY 2 grams TOPICALLY TO THE AFFECTED AREA two (2) times a day 100 g 2 025 Active omeprazole (PRILOSEC) [address] capsuleIndications :Gastroesophageal reflux disease without esophagitis TAKE 1 CAPSULE BY MOUTH IN THE MORNING BEFORE BREAKFAST 30 Capsule 11 025 Active QUEtiapine (SEROQUEL) 50 mg tablet TAKE 1 TABLET BY MOUTH EVERY NIGHT AT BEDTIME 30 Tablet 11 025 Active acetaminophen (TYLENOL) 500 mg tabletIndications: Osteoarthritis of right knee, unspecified osteoarthritis type Take 1 Tablet by mouth every 6 (six) hours as needed for pain 90 Tablet 2 024 2024 Discontinued omeprazole (PRILOSEC) [address] capsuleIndications :Gastroesophageal reflux disease without esophagitis TAKE 1 CAPSULE BY MOUTH IN THE MORNING BEFORE BREAKFAST 90 Capsule 3 024 2024 Discontinued QUEtiapine (SEROQUEL) 50 mg tablet Take 1 Tablet by mouth nightly at bedtime 90 Tablet 1 024 2024 Discontinued diclofenac sodium (VOLTAREN) 1 % gelIndications:Ost eoarthritis of right knee, unspecified osteoarthritis type APPLY 2 grams TOPICALLY TO THE AFFECTED AREA two (2) times a day 100 g 2 025 2024 Discontinued Active Problems Problem Noted Date Diagnosed Date Mild intermittent asthma without complication (H HS-HCC) 04/02/2025 History of kidney stones 04/02/2025 Erectile dysfunction 09/16/2023 Class 2 obesity due to exces s calories without serious comorbidity with body mass index (BMI) of 36.0 to 36.9 in adult 09/16/2023 S/P bariatric surgery 11/30/2022 Dermatitis 08/26/2021 Overview (12/23/2021): December 20 2021: continue with lidex and tacrolimus ointment Sep 2021: being followed by [facility] dermatology Assessment & Plan (08/26/2021 10:42 AM EST): Right lower leg Schizoaffective disorder, bipolar type (CMS & S-HCC) 07/07/2021 Posttraumatic stress disorder 07/07/2021 Neuropathy 06/30/2021 Anxiety 06/13/2020 Overview (09/16/2023): Sep 2023- condition controlled, on meds and not seeing counselor Essential hypertension 04/02/2019 Vitamin D deficiency 04/02/2019 Gastroesophageal reflux disease without esophagi tis 04/02/2019 Osteoarthritis of right knee 04/02/2019 Resolved Problems Problem Noted Date Diagnosed Date Resolved Date Bilateral carpal tunnel syndrome 06/30/2021 09/16/2023 COVID-19 07/24/2020 09/16/2023 BMI 45.0-49.9, adult ([facility]) 06/13/2020 09/16/2023 Benign prostatic hyperplasia with urinary frequency 06/13/2020 09/16/2023 Suspected COVID-19 virus infection 01/24/2020 05/15/2021 Overview (01/24/2020): COVID-19 Tracking [reviewed or updated 01/24/2020] Exposure to confirmed case or travel risk - No Date that symptoms began - 2 months ago Patient risk factors for severe COVID-19: Severe obesity (BMI of 40 or higher) and Diabetes Healthcare worker or metallurgical engineering teacher? No COVID-19 Tested? - No Is patient ? No Encounters Date Type Department Care Team Description 04/02/2025 10:40 AM EDT Office Visit [address] [phone] Jose Francis FNP 03/08/2025 2:00 PM EDT Office Visit [address] [phone] Callie Oviedo DDS from Last 3 Months [...] 04/02/2025 10:48 AM EDT Plan of Treatment Upcoming Encounters Date Type Department Care Team (Late st Contact Info) Description 06/28/2025 11:20 AM EDT Office Visit [facility], [address] [place] [address] Jose Francis FNP [address] [place] [address] Health Maintenance Due Date Last Done Comments Dental FMX/Pano 1973 Dental Prophy 1973 Medicare Annual Wellness Visit 1991 Imm-Pneumococcal 50+ (1 of 2 - PCV) 02/21/1992 CT Colonography 2018 Colonoscopy 2018 Flexible Sigmoidoscopy 2018 FIT/gFOBT 06/17/2023 06/17/2022 Alcohol and Drug Screen 09/12/2024 05/29/20 24, 09/16/2023, 11/30/2022, Additional history exists Depression Annual Screen 09/12/2024 024, 06/13/2020 (Managed by Outside Provider) [id number] ( season) 2025 09/07/2021, 01/26/2021, 12/23/2020 Imm-Influenza (#1) 2025 05/29/2024, 0 05/20/2022, 06/18/2021, Additional history exists Anxiety Screening 05/29/2025 05/29/2024 Lipid Screening 05/29/2025 05/29/2024, 06/12, 05/20/2022, Additional history exists Colorectal Cancer Screening 06/17/2025 Fecal DNA 06/17/2025 06/17/2022 Dental Examination 08/17/2025 08/15/2024 Dental Perio Charting 08/17/2025 08/15/2024 Diabetes Screening 12/25/2025 12/25/2024, 0 10/01/2024, 09/30/2024, Additional history exists Tobacco Screening 04/03/2026 04/03/2025 [...] 2:00 PM EDT Encounter for dental examination HIV 1/2 [...] QT, RT PCR (12/25/2024 3:19 PM EDT) HEPATITIS C ANTIBODY NON-REACT CARMEN NON-REACT CARMEN [place] [facility] Comment: HCV antibody was non-reactive. There is no laboratory evidence of HCV infection. In most cases, no further action is required. However, if recent HCV exposure is suspected, a test for HCV RNA (test code 44237) is suggested. For additional information please refer to http://Node1.Intransa/faq/NML85y9 (This link is being provided for informational/ educational purposes only.) Blood Blood / Unknown 12/25/2024 3 :19 PM EDT 12/25/2024 3:20 PM EDT Jemma Sewell MD LAB - BLOOD DRAW Edited Result - Final [place] [address] [address], [place] [address] [address] * HIV 1/2 AG & AB W/RFLX (4TH GEN) (12/25/2024 3:19 PM EDT) HIV AG/AB, 4TH GEN NON-REAC TIVE NON-REAC TIVE [facility] Comment: HIV-1 antigen and HIV-1/HIV-2 antibodies were [...] purpose. For additional information please refer to http://education.Intransa/faq/OJP052 (This link is being provided for informational/ educational purposes only.) The performance of this assay has not been clinically validated in patients less than 2 years old. Blood Blood / Unknown 12/25/2024 3 :19 PM EDT 12/25/2024 3:20 PM EDT us Jemma Sewell MD LAB - BLOOD DRAW Final Result Performing Organization Address City/[facility]/ZIP Co de Phone Number [place] [facility] [address] [address], [place] [address] [address] * BASIC METABOLIC PANEL CALCIUM TOTAL (12/25/2024 3:19 PM EDT) [facility] GLUCOSE 94 65 - 99 mg/dL [place] [facility] Comment: Fasting reference interval UREA NITROGEN (BUN) 12 7 - 25 mg/dL [place] [facility] CREATININE (blood) 0.90 0.70 - 1.30 mg/dL [place] [facility] EGFR 103 > OR = 60 mL/min/1. 73m2 [place] [facility] BUN/CREATININE RATIO SEE NOTE: [facility] Comment: Not Reported: BUN and Creatinine are within reference range. SODIUM 139 135 - 146 mmol/L [place] [facility] POTASSIUM 4.4 3.5 - 5.3 mmol/L [place] [facility] CHLORIDE 102 98 - 110 mmol/L [place] [facility] CARBON DIOXIDE 28 20 - 32 mmol/L [place] [facility] CALCIUM 9.6 8.6 - 10.3 mg/dL [place] [facility] Blood Blood / Unknown 12/25/2024 3 :19 PM EDT 12/25/2024 3:20 PM EDT us Jemma Sweell MD LAB - BLOOD DRAW Edited Result - Final Performing Organization Address City/[facility]/ZIP Co de Phone Number [place] [facility] [address] [address], [place] [address] [address] * LIPID PANEL (05/29/2024 11:33 AM EDT) CHOLESTEROL, TOTAL 159 <200 mg/dL [place] [facility] HDL CHOLESTEROL 58 > OR = 40 mg/dL [place] [facility] TRIGLYCERIDES 103 <150 mg/dL [place] [facility] LDL-CHOLESTEROL 81 99 mg/dL (calc) [place] [facility] Comment: Reference range: <100 Desirable range <100 mg/dL for primary prevention; <70 mg/dL for patients with CHD or diabetic patients with > or = 2 CHD risk factors. LDL-C is now calculated using the Alexandr calculation, which is a validated novel method providing better accuracy than the Friedewald equation in the estimation of LDL-C. Santosh LANG et al. DMITRY. 2013;310(19): 6219-4020 (http://education.Spot formerly PlacePop/faq/OZD088) CHOL/HDLC RATIO 2.7 <5.0 (calc) [place] [facility] NON-HDL CHOLESTEROL 101 <130 mg/dL (calc) [place] [facility] Comment: For patients with diabetes plus 1 major ASCVD risk factor, treating to a non-HDL-C goal of <100 mg/dL (LDL-C of <70 mg/dL) is considered a therapeutic option. Blood Blood / Unknown 05/29/2024 1 1:33 AM EDT 05/29/2024 11:34 AM EDT Narrative [place] [facility] - 06/01/2024 8:42 AM EDT FASTING:NO Jose [facility] - BLOOD DRAW Final Re sult [place] [address] [address], [place] [address] [address] * COLOGUARD (06/17/2022 3:00 AM EDT) Stool Stool specimen / Unknown 06/17/2022 3:00 AM EDT us Jose [facility] BODY FLUIDS AND STOOL S AMBULATORY Edited Result - Final from Last 3 Months or Most Recently Relevant to Health Maintenance [place] D[place] [facility] NET DENTAL Care Teams Ham Rolling Machine Operator Relationship Specialty Start Date End Date Jose Francis FNP [address] [place] [address] PCP - General 06/12/20
--- OUTSIDE RECORDS SUMMARY | 2025-06-07 12:50 | XMS_ITS | Clinical Summary ---
Author Organization [facility] Address [address] [place] [address] Phone Care Team Providers Care Clinic Business Manager Name Role Phone Ba Roberts MD Primary Care Provider [phone] Allergies Active Allergy Reactions Criticality Noted Date [...] KNEE ARTHROSCOPY W/ MENISCAL REPAIR Right PROCEDURE: [place] ARTHROSCOPY KNEE W/MENISCUS RPR MEDIAL/LATERAL SLEEVE GASTROPLASTY [...] HIV Screening 08/21/2022 Hepatitis C Screening 08/21/2022 12/25/2024 Medicare Annual Wellness Visit 08/21/2022 Social Influencers of Health Screening 08/21/2022 Pneumococcal Vaccine: 50+ Years (1 of 1 - PCV) 2023 Zoster Vaccines (2 of 2) 07/24/2024 10/23/2024, 05/13 DTaP,Tdap,and Td Vaccines (2 - Td or Tdap) 09/12/2024 10/23/2024, 09/12/2014 Depression Screening 09/12/2024 COVID-19 Vaccine (4 - season) 2025 09/07/2021, 01/26/2021, 12/23/2020 Influenza Vaccine (#1) 2025 , 05/20/2022, 06/18/2021, Additional history exists Colorectal Cancer Screening: FIT-DNA (Cologuard) 06/17/2025 06/17/2022 Hypertension/CHF/CAD Annual BMP Blood Test 10/01/2025 12/25/2024, 10/01/2024, 09/30/2024, Additional history exists Cholesterol Screening (Lipid Panel) 05/29/2029 05/29/2024, 05/29/2024, 06/24/2023, Additional history exists RSV Immunization Adult Patients (1 - 1-dose 75+ series) 02/21/2048 Hepatitis B Vaccines Completed 08/04/2020, 06/30/20 HIB [...] LAB CHEMISTRY METHOD 10/01/2024 7:06 AM EST [facility] Potassium 4.0 3.5 - 5.5 mmol/L LAB CHEMISTRY METHOD 10/01/2024 7:06 AM EST [facility] Chloride 109 96 - 110 mmol/L LAB CHEMISTRY METHOD 10/01/2024 7:06 AM [facility] CO2 26 21 - 32 mmol/L LAB CHEMISTRY METHOD 10/01/2024 7:06 AM [facility] Anion Gap 7 3 - 11 LAB CHEMISTRY METHOD 10/01/2024 7:06 AM [facility] Glucose 90 70 - 100 mg/dL LAB CHEMISTRY METHOD 10/01/2024 7:06 AM [facility] BUN 11 5 - 25 mg/dL LAB CHEMISTRY METHOD 10/01/2024 7:06 AM [facility] Creatinine 0.84 0.70 - 1.30 mg/dL LAB CHEMISTRY METHOD 10/01/2024 7:06 AM [facility] eGFR 106 >=60 mL/min/1. 73m2 LAB CHEMISTRY METHOD 10/01/2024 7:06 AM [facility] Comment:Calculation based on the Chronic Kidney Disease Epidemiology Collaboration (CKD-EPI) equation refit without adjustment for race. BUN/Creatinine Ratio 13.1 LAB CHEMISTRY METHOD 10/01/2024 7:06 AM [facility] Calcium 8.0(L) 8.5 - 10.5 mg/dL LAB CHEMISTRY METHOD 10/01/2024 7:06 AM [facility] Blood Venous blood specimen / Unknown Venipuncture / Unknown 10/01/2024 5:57 AM EST 10/01/2024 6:32 AM EST us Laly Mckenna MD LAB BLOOD ORDERABLES Final Res ult [facility] [address] [place] [address], from Last 3 Months or Most Recently Relevant to Health Maintenance Insurance MEDICARE [place]ICA[place] - [place] Advance Directives * Full Code - Default [...] currently active code status orders. Care Teams Clinic Business Manager Relationship Specialty Start Date End Date Ba Roberts MD [address] [place] [address] PCP - General Internal Medicine 04/10/19
[2025-06-07 13:26] LABS: Hematocrit 45.4 % (42.0-52.0); Hemoglobin 15.0 g/dl (14.0-18.0); Mean Corpuscular HGB Conc 33.0 g/dl (31.0-36.0); Mean Corpuscular Hemoglobin 27.5 pg (27.0-33.0); Mean Corpuscular Volume 83.2 fL (80.0-98.0); NRBC Abs Auto 0.000 X10*3/uL (0.0-0.012); NRBC Pct Auto 0.0 /100WBC (0.0-0.2); Platelet Count 283 X10*3/uL (160-400); Red Blood Count 5.46 X10*6/uL (4.60-5.80); White Blood Count 5.9 X10*3/uL (4.8-10.8)
[2025-06-07 13:28] LABS: MRSA Nasal PCR NEGATIVE (Negative); SA Nasal PCR NEGATIVE (Negative)
[2025-06-07 13:40] LABS: Hemoglobin A1C 137.1115 umol/L; Total Hemoglobin (HGBA1C) 3858.2026 umol/L
[2025-06-07 14:05] LABS: Anion Gap 10 (12-20); Blood Urea Nitrogen 10 mg/dL (9-16); Calcium 9.5 mg/dL (8.4-10.2); Carbon Dioxide 30 mmol/L (22-29); Chloride 107 mmol/L (96-108); Creatinine Clr Calc Pharmacy 125.7; Estimated Glomerular Filt Rate > 60; Potassium 4.1 mmol/L (3.3-5.1); Sodium 143 mmol/L (135-145)
[2025-07-04 13:46] LABS: Hematocrit 46.8 % (42.0-52.0); Hemoglobin 15.3 g/dl (14.0-18.0); Mean Corpuscular HGB Conc 32.7 g/dl (31.0-36.0); Mean Corpuscular Hemoglobin 27.4 pg (27.0-33.0); Mean Corpuscular Volume 83.9 fL (80.0-98.0); NRBC Abs Auto 0.000 X10*3/uL (0.0-0.012); NRBC Pct Auto 0.0 /100WBC (0.0-0.2); Platelet Count 278 X10*3/uL (160-400); Red Blood Count 5.58 X10*6/uL (4.60-5.80); White Blood Count 4.9 X10*3/uL (4.8-10.8)
[2025-07-04 14:09] LABS: Anion Gap 9 (12-20); Blood Urea Nitrogen 11 mg/dL (9-16); Calcium 9.3 mg/dL (8.4-10.2); Carbon Dioxide 30 mmol/L (22-29); Chloride 108 mmol/L (96-108); Creatinine Clr Calc Pharmacy 109.9; Estimated Glomerular Filt Rate > 60; Potassium 4.4 mmol/L (3.3-5.1); Sodium 143 mmol/L (135-145)
[2025-07-08] VITALS (11 sets, daily range): BP systolic 110–164; BP diastolic 60–94; PULSE 57–80; RESP 16–18; TEMP 36.4–37.1; O2SAT 94–100; BMI 38.7; BMI 39.9
[2025-07-08] MEDS: Lactated Ringers 1,000 ML 100 ML IVCONT ×3 (06:46→23:40)
--- NOTE | 2025-07-08 07:25 | HO.ANESPROP2 ---
Documented by User: Milagros Han NP 07/02/25 11:45 HPI - Anesthesia Eval Consult details Narrative: 50yo M for Right Knee Replacement Total, 07/08/25 Medically optimized per PCP No recent illness No CP/SOB within limits of knee pain s/p gastric bypass 2022 Moderate + STOP bang - previous sleep study negative Asthma: seasonal during winter - prn - has not needed since last PMFSH Active Problems Active Problems: All Active Problems Arthritis of right knee (Acute) Right knee pain (Acute) Past Medical History Medical History Erectile dysfunction Schizoaffective disorder HTN (hypertension) Arthritis Hx of renal calculi (~2023) PTSD (post-traumatic stress disorder) Depression Anxiety Right knee pain Seasonal asthma Family History Family history of problems with anesthesia: No Surgical History Surgical History History of esophagogastroduodenoscopy (EGD) Hx of bariatric surgery (12/2022) History of Problems with Anesthesia: No Social History Social History Household Members: None Housing: Apartment Are you a primary rn transitional care to a significant other at home: No Do you presently have visiting nurse or other home services: No Patient Tobacco Use Status: Former Tobacco user Tobacco use type: Cigarette Smoked in Last 30 Days: No Use of substances other than those prescribed or required for medical reasons: No Have you been hit, kicked, punched, or otherwise hurt by someone within the past year? If so, by whom?: No Are you DNR?: No Advance Directives: No Advance Directives Information Provided: Yes Advance Directives on File: No Meds Allergies Allergy/AdvReac Type Severity Reaction Status Date / Time No Known Allergies Allergy Verified 06/10/25 11:12 Home Medications ?Medication ?Instructions ?Recorded ?Confirmed ?Last Taken ?Type budesonide-formoterol HFA 80 2 puff inhalation Q4-6H PRN 06/27/24 07/04/25 Unknown History mcg-4.5 mcg/actuation aerosol Shortness Of Breath Or Wheezing inhaler cholecalciferol (vitamin D3) 1,250 1,250 mcg PO QWEEK 06/27/24 07/04/25 Unknown History mcg (50,000 unit) capsule diclofenac sodium 1 % topical gel topical BID PRN Pain 06/27/24 07/04/25 Unknown History paroxetine HCl 40 mg tablet 40 mg PO DAILY 06/27/24 07/04/25 Unknown History paroxetine HCl 10 mg tablet 10 mg PO DAILY 04/24/25 07/04/25 Unknown History quetiapine 50 mg tablet 50 mg PO BEDTIME 04/24/25 07/04/25 Unknown History amlodipine 10 mg-valsartan 160 mg 1 tab PO DAILY 06/07/25 07/04/25 Unknown History tablet ibuprofen 200 mg tablet 200 mg PO Q6H PRN Pain 06/07/25 07/04/25 Unknown History Exam Height,Weight and Vital Signs: Height 5 ft 8 in Weight 113.398 kg Last Vital Signs Pulse 73 06/07/25 11:15 Resp 16 06/07/25 11:15 BP 121/75 06/07/25 11:15 Pulse Ox 97 06/07/25 11:15 O2 Del Method Room Air 06/07/25 11:15 Pertinent Lab Results Pertinent Lab Results: Lab Results 06/07/25 06/07/25 Range/Units 11:30 12:25 WBC 5.9 (4.8-10.8) X10*3/uL RBC 5.46 (4.60-5.80) X10*6/uL Hgb 15.0 (14.0-18.0) g/dl Hct 45.4 (42.0-52.0) % MCV 83.2 (80.0-98.0) fL MCH 27.5 (27.0-33.0) pg MCHC 33.0 (31.0-36.0) g/dl RDW 13.9 (11.0-16.0) % Plt Count 283 (160-400) X10*3/uL MPV 10.4 (9.4-12.4) fL Absolute Nucleated RBC 0.000 (0.0-0.012) X10*3/uL Nucleated RBC % (auto) 0.0 (0.0-0.2) /100WBC Sodium 143 (135-145) mmol/L Potassium 4.1 (3.3-5.1) mmol/L Chloride 107 (96-108) mmol/L Carbon Dioxide 30 H (22-29) mmol/L Anion Gap 10 L (12-20) BUN 10 (9-16) mg/dL Creatinine 0.84 (0.5-1.4) mg/dL Estim Creat Clear Calc 125.7 Estimated GFR > 60 Random Glucose 94 (60-115) mg/dL Estimat Average Glucose 108 mg/dL Hemoglobin A1c % 5.4 (<6.0) % Calcium 9.5 (8.4-10.2) mg/dL Nasal Screen MRSA (PCR) NEGATIVE (Negative) Nasal S. aureus Screen NEGATIVE (Negative) Nasal MRSA/S.aureus Interp SEE NOTE Narrative Narrative: EKG 05/2025 Vent. Rate : 60 BPM Atrial Rate : 60 BPM P-R Int : 140 ms QRS Dur : 90 ms QT Int : 384 ms P-R-T Axes : 50 27 29 degrees QTcB Int : 384 ms Normal sinus rhythm Normal ECG No previous ECGs available Airway TM Dist: >3cm Neck ROM: Full Partial: Lower Heart: RRR Lungs: CTAB Assessment and Plan Assessment Anesthesia Assessment: Anesthesia Plan Discussed and PAT Visit Final Anesthetic Review Family History of Problems with Anesthesia: No History of Problems with Anesthesia: No Documented by User: Adela Storm DO 07/08/25 08:33 [facility] Past Medical History Medical History Erectile dysfunction Schizoaffective disorder HTN (hypertension) Arthritis Hx of renal calculi (~2023) PTSD (post-traumatic stress disorder) Depression Anxiety Right knee pain Seasonal asthma Family History Family history of problems with anesthesia: No Surgical History Surgical History History of esophagogastroduodenoscopy (EGD) Hx of bariatric surgery (12/2022) History of Problems with Anesthesia: No Social History Social History Household Members: None Housing: Apartment Are you a primary rn transitional care to a significant other at home: No Do you presently have visiting nurse or other home services: No Patient Tobacco Use Status: Former Tobacco user Tobacco use type: Cigarette Smoked in Last 30 Days: No Use of substances other than those prescribed or required for medical reasons: No Have you been hit, kicked, punched, or otherwise hurt by someone within the past year? If so, by whom?: No Are you DNR?: No Advance Directives: No Advance Directives Information Provided: Yes Advance Directives on File: No Meds Allergies Allergy/AdvReac Type Severity Reaction Status Date / Time No Known Allergies Allergy Verified 06/10/25 11:12 Home Medications ?Medication ?Instructions ?Recorded ?Confirmed ?Last Taken ?Type budesonide-formoterol HFA 80 2 puff inhalation Q4-6H PRN 06/27/24 07/04/25 Unknown History mcg-4.5 mcg/actuation aerosol Shortness Of Breath Or Wheezing inhaler cholecalciferol (vitamin D3) 1,250 1,250 mcg PO QWEEK 06/27/24 07/04/25 Unknown History mcg (50,000 unit) capsule diclofenac sodium 1 % topical gel topical BID PRN Pain 06/27/24 07/04/25 Unknown History paroxetine HCl 40 mg tablet 40 mg PO DAILY 06/27/24 07/04/25 Unknown History paroxetine HCl 10 mg tablet 10 mg PO DAILY 04/24/25 07/04/25 Unknown History quetiapine 50 mg tablet 50 mg PO BEDTIME 04/24/25 07/04/25 Unknown History amlodipine 10 mg-valsartan 160 mg 1 tab PO DAILY 06/07/25 07/04/25 Unknown History tablet ibuprofen 200 mg tablet 200 mg PO Q6H PRN Pain 06/07/25 07/04/25 Unknown History Exam Exam Date and Time: 07/08/25 0725 Height,Weight and Vital Signs: Vital Signs Pulse Rate 73 06/07/25 11:15 Respiratory Rate 16 06/07/25 11:15 Blood Pressure 121/75 06/07/25 11:15 Pulse Oximetry 97 06/07/25 11:15 Oxygen Delivery Method Room Air 06/07/25 11:15 Temperature 98.6 F 07/08/25 06:45 Pulse Rate 68 07/08/25 06:45 Respiratory Rate 16 07/08/25 06:45 Blood Pressure 146/94 H 07/08/25 06:45 Pulse Oximetry 97 07/08/25 06:45 Oxygen Delivery Method Room Air 07/08/25 06:45 Height 5 ft 8 in Weight 113.398 kg Last Vital Signs Pulse 73 06/07/25 11:15 Resp 16 06/07/25 11:15 BP 121/75 06/07/25 11:15 Pulse Ox 97 06/07/25 11:15 O2 Del Method Room Air 06/07/25 11:15 Airway Mallampati Class: III TM Dist: >3cm Neck ROM: Full Loose/Missing/Broken Teeth: No (patient denies any loose or broken teeth) Heart: S1S2 Assessment and Plan Assessment Anesthesia Assessment: Anesthesia Plan Discussed and Chart Reviewed Final Anesthetic Review Family History of Problems with Anesthesia: No History of Problems with Anesthesia: No NPO: Yes ASA Class: II Final Preanesthetic Review: No Changes in Pt Med Stat, Meds/Allgs Chart Reviewed, Consent Obtained/Reviewed and Anes Risks/Benef Reviewed Patient Risk: Low Procedure Risk: Intermediate Anesthetic Plan Anesthetic Plan: Spinal, Regional Block (right adductor canal and right ipack block) and Agree w/ Assess. and Plan Disposition: Standard PACU
[2025-07-08] MEDS: vancomycin/NS 2,000 MG/500 ML PLAST..BAG 250 MG IV ×2 (08:20→20:18)
--- NOTE | 2025-07-08 10:50 | PM.OP ---
Brief Operative Note Date of Service: 07/08/25 Pre-op diagnosis: Right knee degenerative joint disease Post-op diagnosis: same Procedure: Right total knee arthroplasty Implants: Taylor Triathlon cemented posterior stabilized total knee arthroplasty with a femoral component size 5 right, tibial component size 5, polyethylene liner size 5 with 9 mm of thickness, an asymmetric patellar component size 32 with 10 mm of thickness Surgeon: Ottoniel Chavez MD Anesthesia: regional and spinal Was an Electric Bath Attendant used for this Procedure?: No Electric Bath Attendant: Tarsha Lyons Estimated blood loss (mL): 200 Pathology: other (Bony fragments from the right femur, tibia and patella) Condition: stable Disposition: PACU
--- NOTE | 2025-07-08 10:52 | P.OP_ITS ---
Operative Note Operative Note Date of Service: 07/08/25 Narrative: After the patient was identified as Benson Flores and his right knee was initialed by myself the patient was brought to the holding area where a right leg nerve block was performed by the anesthesiologist in routine fashion. The patient was then brought to the operating room where conscious sedation and spinal anesthesia were performed by the anesthesiologist in routine fashion. Because of the patient's obesity he was given both IV Ancef and IV vancomycin preoperatively for infection prophylaxis. The patient's right lower extremity was prepped and draped in sterile fashion. A formal time-out was completed. Th e patient's right knee was placed onto a small bump to produce 30? of knee flexion during exposure. A #10 scalpel blade was used to make a midline incision extending 1 handbreadth proximal and distal to the patella. A second #10 scalpel blade was used to dissect the subcutaneous tissues down to the extensor mechanism. The subcutaneous flaps were maintained as thick as possible. A medial parapatellar arthrotomy was then performed using a #10 scalpel blade. The arthrotomy was begun just medial to the patellar tendon. The arthrotomy was continued 1 cm medial to the patella and then 5 mm into the medial aspect of the quadriceps tendon. The infrapatellar fat pad was partially excised to help with exposure. The soft tissue retinaculum was raised one-half of the way around the medial aspect of the proximal tibia. The patella was everted and the knee was flexed to 90?. There was no injury to the patellar tendon or its insertion onto the tibial tubercle. A drill bit was introduced in to the distal aspect of the femur with a starting point 1 cm anterior to the origin of the posterior cruciate ligament. The intramedullary alignment brenda was put into place. The distal alignment guide was set for a 5 degree valgus cut. The distal cutting block was put into place and we held it with 4 pins. The intramedullary alignment brenda was removed. Soft tissues were retracted in the distal femoral cut was made using a sagittal saw. The distal aspect of the femur measured to be a size 5 right component. Two drill holes were placed into the distal aspect of the femur marking 3? of external rotation. The distal cutting block was impacted into place and we held it with 2 pins. Soft tissues were retracted and the 4 distal femoral cuts were made using a sagittal saw. Final notching and drilling of the distal aspect of the femur were performed in routine fashion. The trial femoral component was impacted into place. The knee was taken through a full range of motion. The patella tracked well. The patella was everted and the knee was flexed to 90?. The trial component was removed and our attention was directed to the proximal tibia. The medial and lateral menisci were removed using a #10 scalpel blade. A small rim of the medial meniscus was left intact to help prevent injury to the medial collateral ligament. A drill bit was then introduced into the proximal tibia with a starting point midway from medial to lateral and one-third of the way posteriorly. The intramedullary alignment brenda was put into place. The proximal tibial cutting guide was placed over the alignment brenda in line with the 2nd toe. The guide was held in place using 3 pins. The intramedullary alignment brenda was removed. Soft tissues were retracted and the proximal tibial cut was made using a sagittal saw. The proximal tibia measured to be a size 5 component. The tibial tray was put into place with a 9 mm liner. The femoral component was impacted into place. The knee was taken through a full range of motion. There was full flexion and full extension. There was no instability with varus or valgus stress testing with the knee in flexion or extension. The patella tracked well with no medially directed force. The rotation of the tibial tray was marked using electrocautery with the knee in extension. The patella was everted and the knee was flexed to 90?. All trial components were removed. The tibial tray was placed onto the proximal tibia in line with the electrocautery vinny. The tray was held in place using 3 pins. Final broaching of the proximal tibia was performed in routine fashion. The trial liner and trial femoral component were put into place. The knee was brought into extension and our attention was directed to the patella. The patella measured 25 mm in thickness. The patellar resection guide was set for a 10 mm resection. Soft tissues were retracted and the patella cut was made using a sagittal saw. The remaining patella measured 15 mm in thickness. The undersurface of the patella was measured to be a size 32 asymmetric component. Three drill holes were placed into the undersurface of the patella in routine fashion. The trial component was put into place. The knee was taken through a full range of motion. The patella tracked well. The patella was everted and the knee was flexed to 90?. All trial components were removed. The knee was once again brought into extension and placed onto a small bump. The knee joint was irrigated with copious amounts of normal saline solution via pulse lavage while the cement was mixed. The patella was everted and the knee was flexed to 90?. A small amount of cement was placed along the posterior aspects of the tibial and femoral components. Cement was then pressurized into the proximal tibia. The tibial component was impacted into place. Any excess cement was removed. The polyethylene liner was then impacted into place. Cement was then pressurized into the distal aspect of the femur. A small amount of cement was placed into the intramedullary canal to help reduce bleeding. The femoral component was impacted into place. Any excess cement was removed. The knee was then brought into extension. Cement was pressurized into the undersurface of the patella. The patellar component was put into place and was held with a patella clamp. Any excess cement was removed. Once the cement had hardened the patellar clamp was removed. The knee was taken through a full range of motion. There was full flexion and extension. There was no instability with varus or valgus stress testing with the knee in flexion or extension. The patella tracked well with no medially directed force. The knee joint was irrigated with copious amounts of normal saline solution via pulse lavage. Any significant bleeding vessels were coagulated. The patient's right knee was placed onto a small bump. The arthrotomy was closed with #2 Ethibond [id number] interrupted suture as well as #1 Vicryl lgmsyj-[id number] interrupted suture. The wound was once again irrigated. The subcutaneous tissues were closed with 0 Vicryl and 2-0 Vicryl interrupted sutures. The skin was closed with skin bobo. Dry sterile dressing and Musa bandages were placed over the patient's right knee. The patient was awake and alert. The patient was transferred to the recovery room in stable condition. Justification for PA Flame Annealing Machine Setter: The complexity of this total knee arthroplasty, involving significant bony deformity and soft tissue releases, necessitates the assistance of a qualified assistant infant toddler teacher for optimal surgical exposure, hemostasis and efficient execution of the procedure.
[2025-07-08] MEDS: oxyCODONE HCl ER 10 MG TAB.ER.12H PO ×2 (12:16→20:22)
[2025-07-08] MEDS: PARoxetine HCL 40 MG TABLET PO (12:16)
--- NOTE | 2025-07-08 12:18 | PHA.MEDREC ---
Addendum entered by Brinda Ray RPh 07/08/25 12:29: MED REC REVIEWED BY [facility] Original Note: Pharmacy Consult ? Medication Reconciliation Pharmacy has completed the medication reconciliation. Spoke with patient and he confirmed his medications. Pt takes a Vitamin D3 50,000 unit tab once a week on Mondays and took it this past Sunday 07/01, he uses Quetiapine as needed for his mood/anxiety at home and requests to not take it here and pt takes Tamsulosin only as needed for kidney stones/symptoms. Pt states he no longer is taking Gabapentin; stating his PCP put that on hold recently and pt no longer taking Phentermine; stating he stopped that himself recently.
--- NOTE | 2025-07-08 12:32 | PC.NURSE ---
Pt was bladder scanned at 12:00 for 243ml. Not enough for straight cath at this time. Pt will continue to attempt to void on his own and RN will rescan in 4 hours at 4pm.
--- NOTE | 2025-07-08 14:48 | P.DS_ITS ---
DS: Providers Provider Date of Service: 07/09/25 Date of discharge: 07/09/25 Primary care physician: Jose Francis NP Consults: 07/08/25 11:35 Consult to Case Management Routine Comment: home with services Consult to Hospitalist Routine Comment: Routine medical behavior management specialist Provider: [facility] Hospitalists Reason For Exam: routine medical management DS: Summary Hospital Course Hospital Course: The patient underwent a successful right total knee arthroplasty, they were transferred to PACU and then to the floor to recover. During their stay, their vitals were stable, afebrile at 98.3. Labs were unremarkable, H/H 13.1/40.4. POD0 they were started on Aspirin 325mg po bid for DVT ppx, they also received Physical Therapy services twice a day. Prior to discharge, their dressing was clean dry and intact and the plan was to be discharged home with VNA services. Time Attestation Discharge Coordination Time (in mins): 30 Quality: Safe Use of Opioids Does Pt have an Active Cancer Diagnosis on the Problem List?: No Quality: Stroke Does the patient have a stroke diagnosis?: No Physical Exam Vital Signs: Vital Signs: Last Vital Signs Temp 97.6 F 07/08/25 11:35 Pulse 61 07/08/25 11:41 Resp 16 07/08/25 11:35 BP 110/76 07/08/25 11:35 Pulse Ox 96 07/08/25 11:35 O2 Del Method Room Air 07/08/25 11:35 O2 Flow Rate 3 07/08/25 11:04 BMI result Body Mass Index 39.9 Const: General: cooperative, healthy appearing and no acute distress Resp: Effort & Inspection: normal respiratory effort and able to speak in complete sentences Extrem: Other: right knee dressing is c/d/i. Able to dorsi/plantar flex. Calf is supple and nontender. Sensation intact. Pedal pulse intact. Psych: Appearance: grossly normal Mental Status: mental status grossly normal Attitude: cooperative DS: Data Data Completed and Pending Pending studies at discharge: Pending at discharge 07/08/25 08:54 Surgical [PTH] Routine Labs on day of discharge: Laboratory Results - last 24 hr 07/08/25 06:36 Blood Type O Positive Antibody Screen NEGATIVE Discharge Plan Discharge Patient Disposition: Home, Self-Care Referrals: Tarsha Lyons PA-C [Physician Rubber Trimmer, Orthopedics] - 07/25/25 2:00 pm Discharge Medications: New celecoxib 200 mg Capsule 200 mg PO BID 30 Days Qty: 60 0RF acetaminophen 325 mg Tablet 650 mg PO Q6H PRN (Reason: Pain, Mild 1-3,Fever,Headache) 30 Days Qty: 240 0RF aspirin 325 mg Tablet 325 mg PO BID 42 Days Qty: 84 0RF oxycodone 5 mg Tablet 5 mg PO Q4H PRN (Reason: Pain, Moderate(Pain Scale 4-6)) 7 Days Qty: 42 0RF Rx Instructions: Partial Fill upon patient request. Continued (DME) walker Misc See Rx Instructions .MEDSUPPLY Qty: 1 0RF Rx Instructions: Folding front wheeled walker amlodipine-valsartan 10-160 mg tablet 1 tab PO DAILY omeprazole 40 mg capsule,delayed release(DR/EC) 40 mg PO DAILY@0630 tamsulosin 0.4 mg capsule 0.4 mg PO DAILY PRN (Reason: Kidney Stones/Symptoms) paroxetine HCl 40 mg tablet 40 mg PO DAILY cholecalciferol (vitamin D3) 1,250 mcg (50,000 unit) capsule 1,250 mcg PO MO paroxetine HCl 10 mg tablet 10 mg PO DAILY quetiapine 50 mg tablet 50 mg PO BEDTIME PRN (Reason: Mood/Anxiety) Discontinued ibuprofen 200 mg Tablet 200 mg PO Q6H PRN (Reason: Pain) acetaminophen 500 mg tablet 500 mg PO Q6H PRN (Reason: pain) diclofenac sodium 1 % gel 2 g topical BID PRN (Reason: Pain) Discharge Orders: Discharge Order (Routine); Ordered 07/09/25 Ordered By: Tarsha Lyons Diet: Advance to usual diet Activity on Discharge: Use cane or walker Activity Restrictions/Additional Instructions: Physical Therapy for ROM 0-120, quad strength, gait training. No driving for 6 weeks -Bandage/Incision Site Care: -Ice 20mins at a time -Make sure you use a towel or cloth on your skin as a barrier -DO NOT remove the bandage -Keep Bandage clean, dry and intact -Do not get the bandage wet: -No tub bath, pools or hot tubs -If there are any concerns regarding the bandage please call orthopedics: [phone] -Knee Precautions: -Refrain from putting pillows under the knee -Keep leg straight while resting the knee -Avoid low chairs and deep couches -Use supportive shoes with nonslip soles -Physical Therapy: -Patient is WBAT with the use of a walker -Range of Motion: 0-120 degrees. -Strengthening: Quadriceps and hip muscles -Walking: Gait training and gradually increasing distance with walker -Ankle pumps and incentive spirometry to limit the risk of blood clot -Diet: -Resume regular diet as tolerated. -Drink plenty of fluids and eat a high-fiber foods to avoid constipation -This is a common side effect of pain medication) -Take stool softeners as prescribed -Blood Clot Prevention: -Take the prescribed blood thinner (Aspirin) as directed for 6 weeks -Perform ankle pumps and walk frequently with the walker and assistance if needed -Report calf pain, swelling, or shortness of breath immediately Print Language: Luxembourger
[2025-07-08] MEDS: oxyCODONE HCl Immed Release 5 MG TABLET PO (14:59)
--- NOTE | 2025-07-08 15:09 | W.MHC.F2F ---
Service Date Service Date: 07/08/25 Encounter Date of encounter: 07/09/25 Reasons for Services Signs and symptoms assessed: s/p RTKA Pt. is considered homebound due to recent surgery. Unable to drive, poor balance, poor gait mechanics. Reason for physical therapy: home safety and mobility, therapeutic exercises, restore joint function, gait/transfer training and ADL training Homebound: Leaving the home is medically contraindicated at this time without the asist of a device and/or another person due th the listed conditions above and below. Reason homebound: unsteady gait / fall risk, leg weakness, pain with ambulation, pain with transfers, poor balance / fall risk and unable to drive Certification: Based on the above findings, I certify that this patient is confined to the home and needs intermittent intermediate care, physical therapy and/or speech therapy, or continues to need occupational therapy. The patient is under my care, and I have initiated the establishment of the plan of care. The patient will be followed by a physician who will periodically review the plan of care. Time Spent With Patient Time: Total time managing care of this patient today ____ minutes.
[2025-07-09] MEDS: oxyCODONE HCl Immed Release 5 MG TABLET PO (01:24)
[2025-07-09 03:00] VITALS: BP 119/69; PULSE 76; RESP 16; TEMP 37; O2SAT 97
[2025-07-09 05:41] LABS: MANUAL DIFF FLAG NO
[2025-07-09 05:57] LABS: Hematocrit 40.4 % (42.0-52.0); Hemoglobin 13.1 g/dl (14.0-18.0); Imm Gran Abs Auto 0.05 X10*3/uL (0.00-0.03); Imm Gran Pct Auto 0.4 % (0.0-0.4); Lymphocytes Absolute Auto 1.2 X10*3/uL (1.2-4.9); Mean Corpuscular HGB Conc 32.4 g/dl (31.0-36.0); Mean Corpuscular Hemoglobin 27.0 pg (27.0-33.0); Mean Corpuscular Volume 83.1 fL (80.0-98.0); NRBC Abs Auto 0.000 X10*3/uL (0.0-0.012); NRBC Pct Auto 0.0 /100WBC (0.0-0.2); Platelet Count 279 X10*3/uL (160-400); Red Blood Count 4.86 X10*6/uL (4.60-5.80); White Blood Count 11.6 X10*3/uL (4.8-10.8)
[2025-07-09 06:29] LABS: Anion Gap 11 (12-20); Blood Urea Nitrogen 14 mg/dL (9-16); Calcium 8.4 mg/dL (8.4-10.2); Carbon Dioxide 25 mmol/L (22-29); Chloride 108 mmol/L (96-108); Creatinine Clr Calc Pharmacy 144.3; Estimated Glomerular Filt Rate > 60; Potassium 4.2 mmol/L (3.3-5.1); Sodium 140 mmol/L (135-145)
[2025-07-09 07:00] VITALS: BP 126/71; PULSE 75; RESP 17; TEMP 36.8; O2SAT 97
[2025-07-09] MEDS: PARoxetine HCL 40 MG TABLET PO (08:23)
[2025-07-09] MEDS: oxyCODONE HCl ER 10 MG TAB.ER.12H PO (08:23)
--- NOTE | 2025-07-09 08:54 | MHC.CM.PN ---
pt dcd home with ns
--- NOTE | 2025-07-09 09:27 | HO.POSTANES ---
Post Anesthesia Evaluation Post Anesthesia Evaluation Date of Service: 07/09/25 Vital Signs: Vital Signs Temp Pulse Resp BP Pulse Ox O2 Del Method 07/09/25 07:00 98.3 F 75 17 126/71 97 Room Air 07/09/25 03:00 98.6 F 76 16 119/69 97 Room Air 07/08/25 23:00 98.7 F 78 16 110/60 94 Room Air Anesthesia: Spinal and Nerve Block Mental Status: Awake Pain Control: Satisfactory Nausea/Vomiting: None Hydration: Adequate Anesthesia-Related Issues: No Anes. Related Issues
== END 2025-07-09 12:12 | disposition home or self-care (01) ==
LOC: HO.SSS 06:05 → HO.S3 11:00
PROVIDERS: Nurse Practitioner; Physician Assistant; PCP Nurse Practitioner Family; Visit Provider Orthopaedic Surgery
PROC: (CPT 27447; principal; 2025-07-08 07:30)
DX: M25.561 Pain in right knee (principal); M17.11 Unilateral primary osteoarthritis, right knee; R26.2 Difficulty in walking, not elsewhere classified; E66.9 Obesity, unspecified; Z68.36 Body mass index [BMI] 36.0-36.9, adult; J44.9 Chronic obstructive pulmonary disease, unspecified; J45.20 Mild intermittent asthma, uncomplicated; G47.33 Obstructive sleep apnea (adult) (pediatric); Z99.81 Dependence on supplemental oxygen; I10 Essential (primary) hypertension; I25.2 Old myocardial infarction; Z95.1 Presence of aortocoronary bypass graft; Z95.0 Presence of cardiac pacemaker; F25.0 Schizoaffective disorder, bipolar type; K21.9 Gastro-esophageal reflux disease without esophagitis; E55.9 Vitamin D deficiency, unspecified; Z87.442 Personal history of urinary calculi; Z79.52 Long term (current) use of systemic steroids; Z79.82 Long term (current) use of aspirin; Z79.899 Other long term (current) drug therapy; Z98.84 Bariatric surgery status; Z87.891 Personal history of nicotine dependence; Z88.0 Allergy status to penicillin; Z88.8 Allergy status to other drugs, medicaments and biological substances
CPT/HCPCS: 27447; 36415; 80048; 83036; 85025; 85027; 86850; 86900; 86901; 87640; 87641; 88305; 88311; 93005; 97162; 97530; A6260; C1776; J0131; J0665; J0690; J1100; J1171; J2003; J2151; J2250; J2371; J2704; J3010; J3373; J3374; J7120

== ENCOUNTER → 2025-07-08 06:05 | Outpatient (BNV) | payer MEDICARE, MEDICAID, SELFPAY | PROVIDERS: PCP Nurse Practitioner Family; Visit Provider Orthopaedic Surgery | DX: M17.11 Unilateral primary osteoarthritis, right knee (principal); R26.81 Unsteadiness on feet; Z96.651 Presence of right artificial knee joint | CPT/HCPCS: 27447; G0180 ==

== ENCOUNTER 2025-07-25 08:34 | Outpatient (REF) | payer MEDICARE, MEDICAID, SELFPAY ==
--- NOTE | ~2025-07-25 | XR_ITS ---
EXAMINATION: XR KNEE, RIGHT three-view CLINICAL INFORMATION: M25.569 - Pain in unspecified knee COMPARISON: Previous x-ray June 2024 TECHNIQUE: AP standing view of both knees and lateral and sunrise view of the right knee views of the right knee. FINDINGS: Right: New 3 component right knee replacement and satisfactory position. No fracture or dislocation. Postoperative changes to the soft tissues. Soft tissue swelling and small to moderate joint effusion. Standing AP view of the left knee is unremarkable. XR/XR knee RT 3V IMPRESSION: Satisfactory appearance of right knee replacement. Electronically signed by: Paty Mcqueen MD 07/25/2025 02:49 PM EST
== END 2025-07-25 08:35 | disposition home or self-care (01) ==
LOC: HO.HOSX 08:34
PROVIDERS: Visit Provider Physician Assistant
DX: M25.561 Pain in right knee (principal); Z96.651 Presence of right artificial knee joint; Z79.01 Long term (current) use of anticoagulants
CPT/HCPCS: 73562; 99212

== ENCOUNTER 2025-07-25 13:42 | Outpatient (AMB) | payer MEDICARE, MEDICAID, SELFPAY ==
--- NOTE | 2025-07-25 14:05 | A.OFFVIS_ITS ---
Intake Visit Reasons: 2WKPO: R TKA w/ 07/08/25 Intake Note: Benson is a 50 year old male who presents today for a post op appointment status post right total knee arthroplasty done on 07/08/[address] Chavez. Patient reports he is doing well. He notices that he is a bit sore. Patient is going to in house physical therapy and he is starting outpatient physical therapy on Tuesday. Allergies No Known Allergies Allergy (Verified 07/25/25 14:17) HPI HPI 2WKPO: R TKA w/ 07/08/25: Details: Mr. Flores is a 50-year-old male who presents to the office today status post right total knee arthroplasty performed by Dr. Chavez on 07/08/2025. Patient is doing very well overall. Pain is well managed. No additional complaints. [facility] Medical History Erectile dysfunction Schizoaffective disorder HTN (hypertension) Arthritis Hx of renal calculi (~2023) PTSD (post-traumatic stress disorder) Depression Anxiety Right knee pain Seasonal asthma Surgical History History of esophagogastroduodenoscopy (EGD) Hx of bariatric surgery (12/2022) Social History Household Members: None Housing: Apartment Are you a primary urgent care technician to a significant other at home: No Do you presently have visiting nurse or other home services: No 75 years or older and lives alone: No Patient Tobacco Use Status: Former Tobacco user Tobacco use type: Cigarette Second Hand Smoke Exposure: No service: No Review of Systems Const All systems reviewed & are unremarkable except as noted in HPI and below Physical Exam Const General: cooperative, healthy appearing and no acute distress Resp Effort & Inspection: normal respiratory effort and able to speak in complete sentences Extrem Other: Right knee incision site is clean dry and intact. [place] intact. No surrounding erythema or drainage. No signs of infection. Range of motion 0-110 degrees. NVI. Psych Appearance: grossly normal Mental Status: mental status grossly normal Attitude: cooperative Assessment & Plan Assessment & Plan (1) S/P total knee arthroplasty: Code(s): Z96.659 - Presence of unspecified artificial knee joint Category: Surgical Plan Mr. Flores is a 50-year-old male who presents to the office today status post right total knee arthroplasty performed by Dr. hCavez on 07/08/2025. Patient is doing very well overall. Pain is well managed. No additional complaints. While in the office today, bobo were removed and Steri-Strips were applied. Outpatient physical therapy prescription has been ordered. Patient will continue anticoagulation x 6 weeks. No driving for 6 weeks. X-rays of the right knee which were obtained while in the office today and were reviewed by me, Tarsha Lyons PA-C, revealed, intact right total knee arthroplasty with satisfactory alignment. Patient will follow up with Dr. Chavez in 4 weeks, sooner if needed. Orders: Orders XR knee RT 3V Today M25.569 - Pain in unspecified knee Coding Level of Care Code Global (36191) Diagnoses S/P total knee arthroplasty Z96.659
--- OUTSIDE RECORDS SUMMARY | 2025-07-25 17:03 | XMS_ITS | Clinical Summary ---
Author Organization [facility] Address [address] [place] [address] Care Team Providers Care Editorial Assistant Name Role Phone Jose Francis ORDER DESK CLERK Primary Care Provider [phone] Source Comments PLEASE NOTE, if this patient [...] or higher) and Diabetes Healthcare worker or faculty neuropsychologist? No COVID-19 Tested? - No Is patient ? No Encounters Date Type Department Care Team Description 06/28/2025 11:20 AM EDT Office Visit [facility] [id number] [place] [address] Jose Francis FNP from Last [...] 09/12/2024 024, 06/13/2020 (Managed by Outside Provider) [id number] ( season) 2025 09/07/2021, 01/26/2021, 12/23/2020 Anxiety [...] HEPATITIS C ANTIBODY NON-REACT CARMEN NON-REACT CARMEN [facility] Comment: HCV antibody was non-reactive. There is no laboratory evidence of HCV infection. In most cases, no further action is required. However, if recent HCV exposure is suspected, a test for HCV RNA (test code 41884) is suggested. For additional information please refer to http://education.CYPHER/faq/SQF87n7 (This link is being provided for informational/ educational purposes only.) Blood Blood / Unknown 12/25/2024 3 :19 PM EDT 12/25/2024 3:20 PM EDT Jemam Sewell MD LAB - BLOOD DRAW Edited Result - Final [facility] [address] [address], [facility] [address] [address] * HIV 1/2 AG & AB W/RFLX (4TH GEN) (12/25/2024 3:19 PM EDT) Pathologist [facility] HIV AG/AB, 4TH GEN NON-REAC TIVE NON-REAC TIVE [facility] Comment: HIV-1 antigen and HIV-1/HIV-2 antibodies [...] purpose. For additional information please refer to http://education.CYPHER/faq/ZUP196 (This link is being provided for informational/ educational purposes only.) The performance of this assay has not been clinically validated in patients less than 2 years old. Blood Blood / Unknown 12/25/2024 3 :19 PM EDT 12/25/2024 3:20 PM EDT Jemma Sewell MD LAB - BLOOD DRAW Final Result [facility] [address] [address], [facility] [address] [place] [phone] * BASIC METABOLIC PANEL CALCIUM TOTAL (12/25/2024 3:19 PM EDT) GLUCOSE 94 65 - 99 mg/dL [facility] Comment: Fasting reference interval UREA NITROGEN (BUN) 12 7 - 25 mg/dL [facility] CREATININE (blood) 0.90 0.70 - 1.30 mg/dL [facility] EGFR 103 > OR = 60 mL/min/1. 73m2 [facility] BUN/CREATININE RATIO SEE NOTE: 6 [facility] Comment: Not Reported: BUN and Creatinine are within reference range. SODIUM 139 135 - 146 mmol/L [facility] POTASSIUM 4.4 3.5 - 5.3 mmol/L [facility] CHLORIDE 102 98 - 110 mmol/L [facility] CARBON DIOXIDE 28 20 - 32 mmol/L [facility] CALCIUM 9.6 8.6 - 10.3 mg/dL [facility] Blood Blood / Unknown 12/25/2024 3 :19 PM EDT 12/25/2024 3:20 PM EDT us Jemma Sewell MD LAB - BLOOD DRAW Edited Result - Final Performing Organization Address [facility]/ZIP Co de Phone Number [facility] [address] [address], [facility] [address] [phone] * LIPID PANEL (05/29/2024 11:33 AM EDT) [facility] Signature CHOLESTEROL, TOTAL 159 <200 mg/dL [facility] HDL CHOLESTEROL 58 > OR = 40 mg/dL [facility] TRIGLYCERIDES 103 <150 mg/dL [facility] LDL-CHOLESTEROL 81 99 mg/dL (calc) [facility] Comment: Reference range: <100 Desirable range <100 mg/dL for primary prevention; <70 mg/dL for patients with CHD or diabetic patients with > or = 2 CHD risk factors. LDL-C is now calculated using the Alexandr calculation, which is a validated novel method providing better accuracy than the Friedewald equation in the estimation of LDL-C. Santosh LANG et al. DMITRY. 2013;310(19): 4472-1230 (http://education.Mobisante/faq/FAQ378) CHOL/HDLC RATIO 2.7 <5.0 (calc) [facility] NON-HDL CHOLESTEROL 101 <130 mg/dL (calc) [facility] Comment: For patients with diabetes plus 1 major ASCVD risk factor, treating to a non-HDL-C goal of <100 mg/dL (LDL-C of <70 mg/dL) is considered a therapeutic option. Blood Blood / Unknown 05/29/2024 1 1:33 AM EDT 05/29/2024 11:34 AM EDT Narrative [facility] - 06/01/2024 8:42 AM EDT FASTING:NO Jose MERCADOP LAB - BLOOD DRAW Final Re sult Performing Organization Address [facility]/ZIP Co de Phone Number [facility] [address] [address], [facility] [address] [place] [phone] * COLOGUARD (06/17/2022 3:00 AM EDT) Stool Stool specimen / Unknown 06/17/2022 3:00 AM EDT Jose Penny ORDER DESK CLERK LAB BODY FLUIDS AND STOOL S AMBULATORY Edited Result - Final from Last 3 Months or Most Recently Relevant to Health Maintenance Insurance MEDIC[place] - [place] DENTAL HEALTH SAFETY NET DENTAL Care Teams Editorial Assistant Relationship Specialty Start Date End Date Jose Francis FNP [address] [place] [id number] PCP - General 06/12/20
--- OUTSIDE RECORDS SUMMARY | 2025-07-25 17:03 | XMS_ITS | Clinical Summary ---
Author Organization [facility] Address [address] [place] [address] Phone Care Team Providers Care Public Relations Account Supervisor Name Role Phone Ba Roberts MD Primary Care Provider Allergies Active Allergy Reactions Criticality Noted Date [...] KNEE ARTHROSCOPY W/ MENISCAL REPAIR Right PROCEDURE: [place] ARTHROSCOPY KNEE W/MENISCUS RPR MEDIAL/LATERAL SLEEVE GASTROPLASTY [...] LAB CHEMISTRY METHOD 10/01/2024 7:06 AM EST [facility] Potassium 4.0 3.5 - 5.5 mmol/L LAB CHEMISTRY METHOD 10/01/2024 7:06 AM EST [facility] Chloride 109 96 - 110 mmol/L LAB CHEMISTRY METHOD 10/01/2024 7:06 AM [facility] CO2 26 21 - 32 mmol/L LAB CHEMISTRY METHOD 10/01/2024 7:06 AM [facility] Anion Gap 7 3 - 11 LAB CHEMISTRY METHOD 10/01/2024 7:06 AM [facility] Glucose 90 70 - 100 mg/dL LAB CHEMISTRY METHOD 10/01/2024 7:06 AM [facility] BUN 11 5 - 25 mg/dL LAB CHEMISTRY METHOD 10/01/2024 7:06 AM [facility] Creatinine 0.84 0.70 - 1.30 mg/dL LAB CHEMISTRY METHOD 10/01/2024 7:06 AM [facility] eGFR 106 >=60 mL/min/1. 73m2 LAB CHEMISTRY METHOD 10/01/2024 7:06 AM [facility] Comment:Calculation based on the Chronic Kidney Disease Epidemiology Collaboration (CKD-EPI) equation refit without adjustment for race. BUN/Creatinine Ratio 13.1 LAB CHEMISTRY METHOD 10/01/2024 7:06 AM [facility] Calcium 8.0(L) 8.5 - 10.5 mg/dL LAB CHEMISTRY METHOD 10/01/2024 7:06 AM [facility] Blood Venous blood specimen / Unknown Venipuncture / Unknown 10/01/2024 5:57 AM EST 10/01/2024 6:32 AM EST us Laly Mckenna MD LAB BLOOD ORDERABLES Final Res ult [facility] [address] [place] [address], from Last 3 Months or Most Recently Relevant to Health Maintenance Insurance MEDICARE [place]ICA[place] Advance Directives * Full Code - Default [...] currently active code status orders. Care Teams Public Relations Account Supervisor Relationship Specialty Start Date End Date Ba Roberts MD [address] [place] [address] PCP - General Internal Medicine 04/10/19
== END 2025-07-25 14:39 | disposition home or self-care (01) ==
LOC: HO.HOS 13:43
PROVIDERS: PCP Nurse Practitioner Family; Visit Provider Physician Assistant
DX: Z96.659 Presence of unspecified artificial knee joint (principal)
CPT/HCPCS: 99024

== ENCOUNTER → 2025-07-25 13:52 | Outpatient (BNV) | payer MEDICARE, MEDICAID, SELFPAY | PROVIDERS: Visit Provider Radiology Diagnostic Radiology | DX: Z96.651 Presence of right artificial knee joint (principal) | CPT/HCPCS: 73562 ==

== ENCOUNTER 2025-08-22 13:41 | Outpatient (AMB) | payer MEDICARE, MEDICAID, SELFPAY ==
[2025-08-22 13:43] VITALS: BMI 39.4
--- NOTE | 2025-08-22 13:43 | A.OFFVIS_ITS ---
Vital Signs 08/22/25 13:43 Height 5 ft 8 in Weight 259 lb BMI 39.4 Intake Visit Reasons: 6WKPO: R TKA w/DR 07/08/25 Intake Note: Benson is a 50 year old male who presents with complaints of mild to moderate discomfort in his right knee after undergoing right total knee replacement surgery on 07/08/2025. He continues with his physical therapy exercises. He denies any fevers or chills. He does take oxycodone which gives him good relief. Allergies No Known Allergies Allergy (Verified 08/22/25 13:43) Medication List - Last Reconciled 08/22/25 by Ottoniel Chavez MD acetaminophen 650 mg (2 x 325 mg) PO Q6H PRN 30 days amlodipine-valsartan 10-160 mg 1 tab PO DAILY aspirin 325 mg PO BID 42 days celecoxib 200 mg PO BID 30 days cholecalciferol (vitamin D3) 1,250 mcg PO MO omeprazole 40 mg PO DAILY@0630 oxycodone 5 mg PO Q6H PRN 7 days oxycodone 5 mg PO Q6H PRN paroxetine HCl 10 mg PO DAILY paroxetine HCl 40 mg PO DAILY quetiapine 50 mg PO BEDTIME PRN tamsulosin 0.4 mg PO DAILY PRN walker Folding front wheeled walker [facility] Medical History Erectile dysfunction Schizoaffective disorder HTN (hypertension) Arthritis Hx of renal calculi (~2023) PTSD (post-traumatic stress disorder) Depression Anxiety Right knee pain Seasonal asthma Surgical History History of esophagogastroduodenoscopy (EGD) Hx of bariatric surgery (12/2022) Social History Household Members: None Housing: Apartment Are you a primary manager home healthcare to a significant other at home: No Do you presently have visiting nurse or other home services: No 75 years or older and lives alone: No Patient Tobacco Use Status: Former Tobacco user Tobacco use type: Cigarette Second Hand Smoke Exposure: No service: No Physical Exam Vital Signs: BMI result Body Mass Index 39.4 Extrem Other: Right knee examination shows that the surgical incision is well healed, no erythema, full active extension and flexion to 115 degrees, his patella tracks well Assessment & Plan Assessment & Plan (1) Right knee pain: Code(s): M25.561 - Pain in right knee Category: Medical Plan Mr. Flores continues to do very well after undergoing right total knee replacement surgery on 07/08/2025. He will continue with his physical therapy exercises. He does know to take antibiotics before any dental work. I did refill his prescription for oxycodone. He will contact me prior to his follow- up appointment in 2-3 months should any questions or concerns arise. Feel free to call me at any time should questions regarding his orthopedic management arise. Medications: New amoxicillin Take four caps (2,000 mg) one hour before any dental work 2,000 mg (4 x 500 mg) PO ONCE 20 caps 3RF Refilled oxycodone Partial Fill upon patient request. 5 mg PO Q6H PRN 30 tabs 0RF pain Coding Level of Care Code Global (60603) Diagnoses Right knee pain M25.561
--- OUTSIDE RECORDS SUMMARY | 2025-08-22 20:57 | XMS_ITS | Clinical Summary ---
Author Organization [facility] Address [address] [place] [phone] Phone Care Team Providers Care Neuropsychology Director Name Role Phone Ba Roberts MD Primary Care Provider [phone] Allergies Active Allergy Reactions Criticality Noted Date [...] KNEE ARTHROSCOPY W/ MENISCAL REPAIR Right PROCEDURE: [place] ARTHROSCOPY KNEE W/MENISCUS RPR MEDIAL/LATERAL SLEEVE GASTROPLASTY [...] Orientation Straight 09/30/2024 12 :08 PM EST Last Filed Vital Signs Vital Sign Reading [...] mmol/L LAB CHEMISTRY METHOD 10/01/2024 7:06 AM [facility] Anion Gap 7 3 - 11 LAB CHEMISTRY METHOD 10/01/2024 7:06 AM [facility] Glucose 90 70 - 100 mg/dL LAB CHEMISTRY METHOD 10/01/2024 7:06 AM [facility] BUN 11 5 - 25 mg/dL LAB CHEMISTRY METHOD 10/01/2024 7:06 AM [facility] Creatinine 0.84 0.70 - 1.30 mg/dL LAB CHEMISTRY METHOD 10/01/2024 7:06 AM [facility] eGFR 106 >=60 mL/min/1. 73m2 LAB CHEMISTRY METHOD 10/01/2024 7:06 AM [facility] Comment:Calculation based on the Chronic Kidney Disease Epidemiology Collaboration (CKD-EPI) equation refit without adjustment for race. BUN/Creatinine Ratio 13.1 LAB CHEMISTRY METHOD 10/01/2024 7:06 AM [facility] Calcium 8.0(L) 8.5 - 10.5 mg/dL LAB CHEMISTRY METHOD 10/01/2024 7:06 AM [facility] Blood Venous blood specimen / Unknown Venipuncture / Unknown 10/01/2024 5:57 AM EST 10/01/2024 6:32 AM EST us Laly Mckenna MD LAB BLOOD ORDERABLES Final Res ult [facility] [address] [place] [address], from Last 3 Months or Most Recently [...] currently active code status orders. Care Teams Neuropsychology Director Relationship Specialty Start Date End Date Ba Roberts MD [address] [place] [address] PCP - General Internal Medicine 04/10/19
== END 2025-08-22 14:02 | disposition home or self-care (01) ==
LOC: HO.HOS 13:42
PROVIDERS: PCP Nurse Practitioner Family; Visit Provider Orthopaedic Surgery
DX: M25.561 Pain in right knee (principal)
CPT/HCPCS: 99024

== ENCOUNTER → 2025-08-22 13:41 | Outpatient (BNVA) | payer MEDICARE, MEDICAID, SELFPAY | PROVIDERS: PCP Nurse Practitioner Family; Visit Provider Orthopaedic Surgery | DX: M25.561 Pain in right knee (principal); Z96.651 Presence of right artificial knee joint; Z98.890 Other specified postprocedural states | CPT/HCPCS: 99212 ==